=== PATIENT | male | born 1950 | race Caucasian/White ===

== ENCOUNTER → 2016-09-13 | Outpatient (CLI) | payer OTHER ==
[~2016-09-13] MED LIST: GLC/500 PO; GLUCTAB7 PO; LOVA40TA4 PO; OMEGCAP2 PO
--- NOTE | 2016-09-13 16:11 | DIAGNOSTIC IMAGING REPORT ---
[facility] CLINICAL HISTORY: Left ureteral calculus. FINDINGS: 2 AP supine abdominal radiograph are correlated with abdominal CT dated 09/12/2016. There is a nonobstructed abdominal bowel gas pattern noting moderate colonic fecal retention. There is a 7 mm left midureteral calculus which projects below the left transverse process of L3. No additional calculi are clearly identified projecting over either kidney. The bony structures appear intact. IMPRESSION: 1. There is a 7 mm mid left ureteral calculus as above. 2. No additional renal calculi are identified. 3. Moderate constipation. Electronically signed by: Maurice Miranda M.D. 09/13/2016 4:09 PM Dictated Date/Time: 09/13/2016 4:08 PM
--- NOTE | 2016-09-13 16:11 | DIAGNOSTIC IMAGING REPORT ---
CHEST 2 VIEWS ROUTINE CLINICAL HISTORY: Preoperative chest COMPARISON STUDY: No previous studies for comparison. FINDINGS: The heart is at the upper limits of normal in size. There are low lung volumes. There is no lobar consolidation. There is no failure. There are no pleural effusions.[ IMPRESSION: No active disease in the chest. Electronically signed by: Nino Padilla M.D. 09/13/2016 4:10 PM Dictated Date/Time: 09/13/2016 4:09 PM
[2016-09-13 16:44] LABS: BASO % 0.1 %; BASO ABS # 0.01 K/uL (0-0.2); COMPLETE YES; EOS % 0.1 %; IG% 0.1 %; LYMPH % 11.9 %; LYMPH ABS # 1.09 K/uL (1.2-3.4); MEAN CELL VOLUME 87.9 fL (80-100); MEAN CORPUSCULAR HEMOGLOBIN 30.3 pg (25-34); MEAN CORPUSCULAR HGB CONC 34.5 g/dl (32-36); MEAN PLATELET VOLUME 10.2 fL (7.4-10.4); MONO % 8.2 %; NEUT % 79.6 %; PLATELET COUNT 178 K/uL (130-400); RED BLOOD COUNT 4.78 M/uL (4.7-6.1); WHITE BLOOD COUNT 9.15 K/uL (4.8-10.8)
[2016-09-13 16:57] LABS: URINE APPEARANCE CLEAR (CLEAR); URINE BILIRUBIN NEG (NEG); URINE COLOR DK YELLOW; URINE NITRITE NEG (NEG); URINE SPECIFIC GRAVITY 1.037 (1.000-1.030); UROBILINOGEN NEG (NEG)
[2016-09-13 17:04] LABS: MANUAL MICROSCOPIC REQUIRED? NO; REVIEW REQ? NO
[2016-09-13 17:05] LABS: BLOOD UREA NITROGEN 20 mg/dl (7-18); BUN/CREATININE RATIO 11.9 (10-20); CARBON DIOXIDE 26 mmol/L (21-32); CHLORIDE 103 mmol/L (98-107); POTASSIUM 3.8 mmol/L (3.5-5.1); SODIUM 138 mmol/L (136-145)
== END | disposition home or self-care (01) ==
LOC: C.CPL 15:08
PROVIDERS: ATTEND Urology
DX: N20.1 Calculus of ureter (principal)

== ENCOUNTER → 2016-09-15 | Day surgery (SDC) | payer OTHER ==
[2016-09-14 13:39] VITALS: Ht 175.3 cm; Wt 81.8 kg
[~2016-09-15] VITALS: Ht 175.3 cm; Wt 81.8 kg
[~2016-09-15] MED LIST changes: +ATROPINE SULFATE 0.1 MG/ML 5ML SYR IV PRN; +CIPROFLOXACIN 400MG / D5W IV SCH; +EpHEDrine SULFATE INJ 50 MG/ML AMP IV PRN; +FENTANYL CITRATE INJ 50 MCG/1 ML 2 ML VIAL IV PRN; +FENTANYL CITRATE INJ 50 MCG/1 ML 2 ML VIAL ONE; +FLUMAZENIL 0.1 MG/1 ML 10 ML VIAL IV PRN; +HYDROmorphone INJ 2 MG/ML SYR/VIAL IV PRN; +LABETALOL HCL IV 5 MG/ML 20ML IV PRN; +LACTATED RINGER'S 1000ML 1,000 ML IV SCH; +LIDOCAINE HCL 2% 2 ML VIAL (20MG/ML) ONE; +MEPERIDINE HCL 25 MG/ML CARP IV PRN; +MIDAZOLAM HCL 1 MG/ML 2ML VIAL ONE; +NALOXONE HCL 0.4 MG/1 ML VIAL/CARP IV PRN; +ONDANSETRON INJ 2 MG/ML 2 ML VIAL IV PRN; +OXYCODONE/ACETAMINOPHEN 5-325 TAB PO PRN; +PATIENT'S ALLERGY INFO NEEDS ENTERED SCH; +PHENYLEPHRINE 100MCG/ML 5ML SYR IV PRN; +PROPOFOL IV EMULSION 10 MG/ML 20 ML VIAL IV ONE; +SCOPOLAMINE 1.5 MG TDSY TD ONE
--- NOTE | 2016-09-15 08:41 | History & Physical Bridge Note ---
H&P Re-Evaluation Bridge Note: I have examined the patient, reviewed the History & Physical and in the interval since the performance of the History & Physical I have noted the following changes of clinical significance: No changes noted
--- NOTE | 2016-09-15 10:57 | Discharge Instructions ---
Discharge Instructions Admission Reason for Admission: Stones Discharge Discharge Diagnosis / Problem: L ureteral stone s/p ESWL Discharge Goals Goal(s): Decrease discomfort, Improve disease control, Therapeutic intervention Activity Recommendations Activity Limitations: per Instructions/Follow-up section Lifting Limitations: gradually increase as tolerated Exercise/Sports Limitations: rest today May Resume Sexual Activity: when tolerated Shower/Bathe: no limitations Driving or Machine Use: resume 1 day after discharge . Instructions / Follow-Up Instructions / Follow-Up Follow-up as planned in office with [facility] prior to visit. Strain urine and bring in stone fragments to visit. Discharge Diet Recommended Diet: Regular Diet (good fluid intake) Procedures Procedures Performed: Left ureteral ESWL Pending Studies Studies pending at discharge: no Laboratory Results Hemoglobin A1c Test 07/25/16 09:21 Range/Units Estimated Average Glucose 134 mg/dl Hemoglobin A1c 6.3 H 4.5-5.6 % Lipid Panel Test 07/25/16 09:21 Range/Units Triglycerides Level 105 0-150 mg/dl Cholesterol Level 136 0-200 mg/dl HDL Cholesterol 52 mg/dl Cholesterol/HDL Ratio 2.6 LDL Cholesterol, Calculated 63 mg/dl Medical Emergencies . Who to Call and When: Medical Emergencies: If at any time you feel your situation is an emergency, please call 911 immediately. . Non-Emergent Contact Non-Emergency issues call your: Urologist Call Non-Emergent contact if: you have a fever, temperature is above 101, your pain is not controlled, your pain is worsening, your pain is unusual for you, you have any medication questions . . "Provider Documentation" section prepared by Aristides Gonzales. VTE Core Measure Inpt VTE Proph given/why not?: SCD's
--- NOTE | 2016-09-15 11:37 | OPERATIVE REPORT ---
DATE OF OPERATION: 09/15/2016 PREOPERATIVE DIAGNOSIS: Left ureteral stone. POSTOPERATIVE DIAGNOSIS: Same. PROCEDURE: Left-sided ureteral extracorporeal shockwave lithotripsy. SURGEON: Dr. Aristides Gonzales. CARBON FURNACE OPERATOR: None. ANESTHESIA: General anesthesia with laryngeal mask. COMPLICATIONS: None. FINDINGS: Good stone fragmentation on fluoroscopy. DETAILS OF PROCEDURE: The patient was brought to the litho suite. He was correctly identified and the stone was visualized on his most recent x-rays. After the correct time out was performed the patient was positioned over the therapy head. An adequate level of anesthesia was administered. The extracorporeal shockwave lithotripsy treatment was then commenced. Please see the [facility] sheet for complete treatment summary. After completion of the procedure the patient was taken to the recovery room in stable condition. I attest to the content of the Intraoperative Record and any orders documented therein. Any exceptio ns are noted below.
--- NOTE | 2016-09-15 11:51 | [facility] Post Operative Brief Note ---
Immediate Operative Summary Operative Date Sep 15, 2016. Pre-Operative Diagnosis Left Renal Calculi Post-Operative Diagnosis Same Procedure(s) Performed Left Extracorporeal Shock Wave Lithotripsy Surgeon Dr. Evans Gonzales Tucking Machine Operator Surgeon(s) None Estimated Blood Loss 0 mL Findings Good stone fragmentation on fluoro Specimens None Drains NA Anesthesia GALMA Complication(s) None Disposition Recovery Room / PACU
--- NOTE | 2016-09-15 11:58 | Anesthesia Progress Nt - [facility] ---
Anesthesia Post Op Note Date & Time Sep 15, 2016 at 11:58 Vital Signs Pain Intensity: 0 Vital Signs Past 12 Hours Date Time Temp Pulse Resp B/P Pulse Ox O2 Delivery O2 Flow Rate FiO2 09/15/16 11:35 36.8 62 12 128/75 98 Diffusion Mask 6 09/15/16 08:45 37.3 20 Notes Mental Status: alert / awake / arousable, participated in evaluation Pt Amnestic to Procedure: Yes Nausea / Vomiting: adequately controlled Pain: adequately controlled Airway Patency, RR, SpO2: stable & adequate BP & HR: stable & adequate Hydration State: stable & adequate Anesthetic Complications: no major complications apparent
[2016-09-15 12:25] VITALS: TEMP 37
[2016-09-15 12:54] VITALS: BP 129/65; PULSE 69; O2SAT 97
== END | disposition home or self-care (01) ==
LOC: X.SURG 08:26
PROVIDERS: ATTEND Urology
DX: N20.1 Calculus of ureter (principal); E11.9 Type 2 diabetes mellitus without complications; E78.00 Pure hypercholesterolemia, unspecified; Z88.0 Allergy status to penicillin; Z98.890 Other specified postprocedural states; Z82.49 Family history of ischemic heart disease and other diseases of the circulatory system

== ENCOUNTER → 2016-09-28 | Outpatient (CLI) | payer OTHER ==
[~2016-09-28] MED LIST changes: -ATROPINE SULFATE 0.1 MG/ML 5ML SYR IV PRN; -CIPROFLOXACIN 400MG / D5W IV SCH; -EpHEDrine SULFATE INJ 50 MG/ML AMP IV PRN; -FENTANYL CITRATE INJ 50 MCG/1 ML 2 ML VIAL IV PRN; -FENTANYL CITRATE INJ 50 MCG/1 ML 2 ML VIAL ONE; -FLUMAZENIL 0.1 MG/1 ML 10 ML VIAL IV PRN; -HYDROmorphone INJ 2 MG/ML SYR/VIAL IV PRN; -LABETALOL HCL IV 5 MG/ML 20ML IV PRN; -LACTATED RINGER'S 1000ML 1,000 ML IV SCH; -LIDOCAINE HCL 2% 2 ML VIAL (20MG/ML) ONE; -MEPERIDINE HCL 25 MG/ML CARP IV PRN; -MIDAZOLAM HCL 1 MG/ML 2ML VIAL ONE; -NALOXONE HCL 0.4 MG/1 ML VIAL/CARP IV PRN; -ONDANSETRON INJ 2 MG/ML 2 ML VIAL IV PRN; -OXYCODONE/ACETAMINOPHEN 5-325 TAB PO PRN; -PATIENT'S ALLERGY INFO NEEDS ENTERED SCH; -PHENYLEPHRINE 100MCG/ML 5ML SYR IV PRN; -PROPOFOL IV EMULSION 10 MG/ML 20 ML VIAL IV ONE; -SCOPOLAMINE 1.5 MG TDSY TD ONE
== END | disposition home or self-care (01) ==
LOC: C.LABSPEC 17:28
PROVIDERS: ATTEND Urology
DX: N20.0 Calculus of kidney (principal)

== ENCOUNTER → 2017-08-22 | Outpatient (CLI) | payer OTHER ==
[2017-08-22 13:11] LABS: HEMOGLOBIN A1C 6.5 % (4.5-5.6)
== END | disposition home or self-care (01) ==
LOC: C.LABMFLN 10:24
PROVIDERS: ATTEND Family Medicine
DX: E78.00 Pure hypercholesterolemia, unspecified (principal); E11.9 Type 2 diabetes mellitus without complications; Z12.5 Encounter for screening for malignant neoplasm of prostate

== ENCOUNTER → 2017-08-29 | Outpatient (CLI) | payer OTHER | END | disposition home or self-care (01) | LOC: C.LABMFLN 10:29 | PROVIDERS: ATTEND Family Medicine | DX: E78.00 Pure hypercholesterolemia, unspecified (principal); E11.9 Type 2 diabetes mellitus without complications ==

== ENCOUNTER 2018-09-07 17:37 | Inpatient (IN) ==
[2018-09-07] MEDS ORDERED: FAMOTIDINE 20MG/5ML IV PUSH IV STA (17:49)
[2018-09-07] MEDS ORDERED: ONDANSETRON INJ 2 MG/ML 2 ML VIAL IV STA (17:49)
[2018-09-07] MEDS ORDERED: PANTOprazole 80 MG in DEXTROSE 5% 100 ML IV ONE (17:49)
[2018-09-07] MEDS ORDERED: SODIUM CHLORIDE 0.9% 1000ML 1,000 ML IV SCH ×2 (18:00)
[2018-09-07] MEDS ORDERED: PANTOprazole 40 MG in DEXTROSE 5% 100 ML IV SCH ×2 (18:00→20:49)
[2018-09-07 18:08] LABS: Basophils # (auto) 0.01 K/uL (0-0.2); Basophils % (auto) 0.1 %; Eosinophils # (auto) 0.03 K/uL (0-0.5); Eosinophils % (auto) 0.2 %; Hematocrit (blood only) 29.1 % (42-52); Hemoglobin 9.7 g/dL (14.0-18.0); Immature Granulocytes # (auto) 0.03 K/uL (0.00-0.02); Immature Granulocytes % (auto) 0.2 %; Lymphocytes % (auto) 17.6 %; Mean Corpuscular Hgb Conc 33.3 g/dL (32-36); Mean Corpuscular Volume 90.1 fL (80-100); Mean Platelet Volume 9.4 fL (7.4-10.4); Monocytes % (auto) 9.2 %; Neutrophils # (auto) 9.53 K/uL (1.4-6.5); Neutrophils % (auto) 72.7 %; Platelet Count 296 K/uL (130-400); RDW Coefficient of Variation 13.3 % (11.5-14.5); RDW Standard Deviation 43.9 fL (36.4-46.3); Red Blood Count 3.23 M/uL (4.7-6.1)
[2018-09-07 18:22] LABS: iSTAT Hemoglobin 9.5 g/dl (14.0-18.0); iSTAT Ionized Calcium 1.11 mmol/l (1.12-1.32)
[2018-09-07 18:27] LABS: INR 1.1 (0.9-1.1); Partial Thromboplastin Ratio 1.2; Partial Thromboplastin Time 30.3 Seconds (21.0-31.0)
[2018-09-07 18:29] LABS: Alanine Aminotransferase 17 U/L (12-78); Albumin Level 2.6 gm/dl (3.4-5.0); Aspartate Aminotransferase 14 U/L (15-37); Blood Urea Nitrogen 32 mg/dl (7-18); Calcium 8.4 mg/dl (8.5-10.1); Carbon Dioxide 23 mmol/L (21-32); Chloride 101 mmol/L (98-107); Est GFR (African American) 63.1; Est GFR (Non-African American) 54.4; Glucose 219 mg/dl (70-99); Potassium 3.5 mmol/L (3.5-5.1); Sodium 138 mmol/L (136-145)
[2018-09-07 18:34] LABS: Albumin Globulin Ratio 0.7 (0.9-2); Alkaline Phosphatase 57 U/L (45-117); Bilirubin,Total 1.3 mg/dl (0.2-1); Globulin 3.5 gm/dl (2.5-4.0); Total Protein 6.1 gm/dl (6.4-8.2); Troponin I < 0.015 ng/ml (0-0.045)
--- NOTE | 2018-09-07 18:59 | CT Scan Report ---
ABDOMEN AND PELVIS CT WITHOUT CONTRAST CT DOSE: 477.40 mGy.cm HISTORY: Acute GI bleed with generalized abdominal pain and vomiting. GI bleed, vomiting, tender umb ilical hernia TECHNIQUE: Multiaxial CT images of the abdomen and pelvis were performed without contrast. A dose lo wering technique was utilized adhering to the principles of ALARA. COMPARISON STUDY: CT abdomen pelvis 09/12/2016 images only from outside hospital. FINDINGS: Mild subsegmental bibasilar atelectasis with right hemidiaphragmatic elevation. No pneumatosis or pn eumoperitoneum identified. Imaged inferior cardiac chambers appear unremarkable. Coronary arterial ca lcifications are noted. Mild fusiform dilation of the ascending thoracic aorta, 4.0 x 4.0 cm, unchang ed. Study is limited without the use of contrast. There are a few subcentimeter hypodense lesions noted a bout the left hepatic lobe measuring up to 6 mm, indeterminate unchanged statistically favor benign e tiology. Liver is otherwise unremarkable. There are a few coarse calcifications noted about the pancr eatic tail and pancreatic body. Mild generalized pancreatic atrophy. Adrenal glands and gallbladder a ppear unremarkable. Mild nonspecific perinephric stranding, right greater than left. No renal calculi, ureteral calculi o r obstructive uropathy. Suggested renal sinus cysts on the right. Mild prostamegaly. Urinary bladder is within normal limits. Small fat filled bilateral inguinal hernias. Aorta and IVC are unremarkable. No adenopathy. There is moderate circumferential wall thickening about the pylorus, first and second portions of the duodenum with mild irregularity of the mucosa within this distribution, image 161 series 3. Addition ally, there is hyperattenuating material within the duodenal lumen. Moderate surrounding inflammatory stranding. No small bowel obstruction. The remainder of the small and large bowel demonstrates no in flammatory changes or additional wall thickening. Extensive colonic diverticulosis without acute dive rticulitis. Terminal ileum and appendix appear unremarkable. Trace fluid tracks along the right peric olic gutter. Ill-defined hypodensity about the right iliacus suggests iliopsoas bursitis. Multilevel facet arthros is with spondylitic spurring. Remote bilateral L4 pars defects with 10 mm anterolisthesis L4 on L5. C hondrocalcinosis severe intervertebral disc space narrowing of the disc space. Chondrocalcinosis of t he facets at this interspace are also present. Chondrocalcinosis of the femoral acetabular joints and pubic symphysis. Small fat filled periumbilical hernia, diastases 1.9 cm. IMPRESSION: 1. Limited study without the use of contrast. 2. Moderate circumferential wall thickening about the pylorus, first and second portions of the duode num with mild irregularity of the duodenal mucosa is suggestive of underlying peptic ulcer disease or ulcerative mucosal lesion. Hyperattenuating material within the duodenal lumen suggests intraluminal hemorrhage. These findings could be correlated with endoscopy. 3. Moderate likely reactive paraduodenal inflammation. 4. No pneumatosis or pneumoperitoneum. 5. Colonic diverticulosis without acute diverticulitis. 6. Fusiform aneurysmal dilation of the ascending thoracic aorta, 4.0 x 4.0 cm. 7. Additional findings as above. Electronically signed by: Phillip Malik M.D. 09/07/2018 6:57 PM
--- NOTE | 2018-09-07 19:03 | XRay Report ---
XR chest 1V portable HISTORY: 68 years-old Male gi bleed acute GI bleed COMPARISON: CT abdomen and pelvis of same day, chest radiograph 07/15/2018 TECHNIQUE: Portable AP view the chest FINDINGS: Mild right hemidiaphragm elevation. Lungs are hypoinflated. Subsegmental bibasilar opacities. Heart i s upper limits of normal in size. No pneumothorax or overt pulmonary edema. Degenerative changes of t he shoulders and spine. IMPRESSION: Mild right hemidiaphragm elevation with subsegmental bibasilar opacities suggestive of atelectasis. The above report was generated using voice recognition software. It may contain grammatical, syntax o r spelling errors. Electronically signed by: Phillip Malik M.D. 09/07/2018 7:02 PM
[2018-09-07 19:38] LABS: Hematocrit (blood only) 25.2 % (42-52); Hemoglobin 8.4 g/dL (14.0-18.0)
--- NOTE | 2018-09-07 20:42 | Emergency Department Note ---
Entered by Megan Howard acting as a scribe for ED Provider Note CHIEF COMPLAINT: GI bleed HISTORY OF PRESENT ILLNESS: The patient is a 68 year old male who presents to the Emergency Room with complaints of sudden GI bleed that started yesterday . The patients reports the patient had knee replacement recently. She states the patient started having nausea and rectal bleeding after the surgery. The patient reports his stool is bloody and dark. He reports he has no history of rectal bleeding, ulcers, anemia, or blood transfusion. The patient notes he had multiple episodes of heave vomiting yesterday and on the last episode he vomited small amount of blood. The patient reports he had 10mg of xarelto at 7am today. Pt denies LOC, headache, fevers, chills, diaphoresis, visual changes, neck pain , chest pain, breathing difficulties, abdominal pain, back pain, hematochezia, urinary symptoms, numbness, weakness, lymphadenopathy, rash, or other complaints. REVIEW OF SYSTEMS: See HPI for pertinent positives and negatives. A total of ten systems were reviewed and were otherwise negative. PMHx/PSHx: Hyperlipidemia Diabetes Osteoarthritis Umbilical hernia Lithotripsy SOCIAL HISTORY: Patient lives at home. PHYSICAL EXAM: GENERAL: Awake, alert, uncomfortable-appearing, in moderate distress HENT: Normocephalic, atraumatic. Oropharynx unremarkable. EYES: Normal conjunctiva. Sclera non-icteric. NECK: Inspection normal. Non-tender. Supple. No nuchal rigidity. FROM. No masses. RESPIRATORY: Clear to auscultation. No wheezes. No rales. Normal respiratory effort. CARDIAC: Tachycardic rate. Normal rhythm. No murmurs. No rubs. Extremities warm and well perfused. Pulses equal. No JVD. GI: Soft, non-distended. No tenderness to palpation. No rebound or guarding. No masses. Umbilical hernia present and tender. RECTAL: Grossly bloody stool. Hemoccult positive MUSCULOSKELETAL: Atraumatic. Chest examination reveals no tenderness. The back is symmetrical on inspection without obvious abnormality. There is no CVA tenderness to palpation. No joint edema. LOWER EXTREMITIES: Calves are equal size bilaterally and non-tender. No edema. No discoloration. Surgical right knee incision is clean, dry, and intact. Scattered bruising and mild swelling in the right lower leg. NEURO: Normal sensorium. No sensory or motor deficits noted. SKIN: No rash or jaundice noted. EMERGENCY DEPARTMENT COURSE: 1745: Past medical records reviewed. The patient was evaluated in room B12B, and a complete history and physical examination were performed. 1843: I checked on the patient. The patient is feeling better, nausea is better , blood pressure has improved, and heart rate went down. I updated him on results so far. 1909: I reviewed the patient's case with Dr. Collins, [facility] Hospitalist. He will evaluate the patient for further management. 1916: I reviewed the patient's case with Dr. Mederos, Gastoenterologis. 1934: I reviewed the patient's case with Dr. Ribeiro, Gastroenterology. He agreed with the treatment so far. He said if the patient decompensates to call him and he will come in emergently. He plans to reevaluate him in the morning for management. 1954: Repeat hemoglobin. It is down to 8.4. I discussed transfusion with the patient and he is in agreement and Dr. Collins is as well. MEDICAL DECISION MAKING: Prior records/ancillary studies reviewed. Patient was discharged with a hemoglobin of 12.73 days ago. Triage Nursing notes reviewed and agree them. Additional history obtained from the the patient's . The patient's history was concerning for possible gastrointestinal bleeding. Differential diagnosis: Etiologies such as diverticulosis, AVM, coagulopathy, colitis, inflammatory bowel disease, malignancy,Jayashree-Cagle tear, esophagitis, peptic ulcer disease , variceal bleed, gastritis, epistaxis, fissure, hemorrhoids, as well as others were entertained. Physical exam: As above. The patient was tachycardic and hypotensive. ER treatment provided: 2 IVs placed Normal saline hydration as well as 1 L normal saline bolus IV Zofran IV Protonix bolus and drip IV Pepcid On reassessment the patient felt better. Type and cross with consent for blood transfusion. Ordered 1 unit packed red blood cells after consultation with internal medicine and gastroenterology Diagnostics interpreted by me: ECG: No acute ischemia The labs revealed a moderate anemia on CBC. Hemoglobin was down approximately 3 units to 9.7. Repeat hemoglobin after saline resuscitation was down further at 8.4. Imaging studies: CT scan was concerning for possible peptic ulcer disease with intraluminal hemorrhage. No perforations noted per radiology. Other chronic findings noted. Consultation: A consultation was placed with the aircraft instrument mechanic on-call, Dr. Talha Ribeiro. He agreed with the above treatment and plans on evaluating the patient in the morning if he remains hemodynamically stable after resuscitation. If the patient becomes unstable he will plan on emergent endoscopy. Consultation was placed with the [facility] hospitalist. The case was discussed and diagnostics were reviewed. The patient was evaluated in the ER for further treatment. The patient will be admitted to the intensive care unit. Critical care was consulted by internal medicine. IMPRESSION: Acute GI bleed Hypotension Anemia PLAN: Admit I have personally spent greater than 35 minutes of critical care time in the direct management of this patient. This includes bedside care, interpretation of diagnostic studies, and testing, discussion with consultants, patient, and family members, and other required patient management activities. This 35 minutes is in excess of all separately billable procedures. The scribe's documentation has been prepared under my direction and personally reviewed by me in its entirety. I confirm that the note above accurately reflects all work, treatment, procedures, and medical decision making performed by me. Impression & Plan Acute GI bleeding, Hypotension, Anemia Past Med/Surg History Medical History Diabetes mellitus, type 2 NIDDM Hyperlipidemia Osteoarthritis Umbilical hernia Surgical History History of colonoscopy History of lithotripsy LEFT ESWL= 09/15/16= "LMA#5 WITH 40CC AIR IN CUFF, EASY, ATRAUMATIC" AT [facility] History of repair of rotator cuff RIGHT Family History Mother Family history of diabetes mellitus Social History marital status: Current Living Situation: Spouse Feels Safe at Home: Yes Smoking Status: Never smoker Second Hand Exposure: No Hx Alcohol Use: No Hx Substance Use: No Beliefs That Will Affect Care: None Preferred Language: Swazi Results & Data Vital Signs Vital Signs - 24 hr 09/07/18 17:40 09/07/18 18:00 09/07/18 18:10 Temperature 37.1 C Temperature Source Oral Sepsis Recent Fever Within 48 Hours No Sepsis New/Unexplained Change in Mental Status No Sepsis Action Taken by Nursing No Action Required Pulse Rate 80 89 88 Pulse Rate [Apical] Respiratory Rate 20 24 25 H Blood Pressure 79/45 L 122/69 Blood Pressure [Right Arm] Blood Pressure Mean 56 86 Blood Pressure Mean [Right Arm] Blood Pressure Position Sitting Pulse Oximetry 99 98 97 Oxygen Delivery Method Room Air 09/07/18 18:15 09/07/18 18:16 09/07/18 18:33 Temperature Temperature Source Sepsis Recent Fever Within 48 Hours Sepsis New/Unexplained Change in Mental Status Sepsis Action Taken by Nursing Pulse Rate 87 85 Pulse Rate [Apical] Respiratory Rate 23 22 24 Blood Pressure 117/66 114/69 Blood Pressure [Right Arm] Blood Pressure Mean 83 84 Blood Pressure Mean [Right Arm] Blood Pressure Position Pulse Oximetry 96 96 96 Oxygen Delivery Method 09/07/18 18:34 09/07/18 18:39 09/07/18 18:45 Temperature Temperature Source Sepsis Recent Fever Within 48 Hours Sepsis New/Unexplained Change in Mental Status Sepsis Action Taken by Nursing Pulse Rate 97 H 95 H Pulse Rate [Apical] 95 H Respiratory Rate 23 20 23 Blood Pressure 96/62 L Blood Pressure [Right Arm] 114/69 Blood Pressure Mean 73 Blood Pressure Mean [Right Arm] 84 Blood Pressure Position Pulse Oximetry 95 97 94 Oxygen Delivery Method Room Air 09/07/18 18:46 09/07/18 19:00 09/07/18 19:01 Temperature Temperature Source Sepsis Recent Fever Within 48 Hours Sepsis New/Unexplained Change in Mental Status Sepsis Action Taken by Nursing Pulse Rate 98 H 95 H 97 H Pulse Rate [Apical] Respiratory Rate 25 H 20 22 Blood Pressure 116/62 Blood Pressure [Right Arm] Blood Pressure Mean 80 Blood Pressure Mean [Right Arm] Blood Pressure Position Pulse Oximetry 94 94 91 Oxygen Delivery Method 09/07/18 19:15 09/07/18 19:16 09/07/18 19:25 Temperature Temperature Source Sepsis Recent Fever Within 48 Hours Sepsis New/Unexplained Change in Mental Status Sepsis Action Taken by Nursing Pulse Rate 99 H 97 H 128 H Pulse Rate [Apical] Respiratory Rate 24 24 22 Blood Pressure 121/72 121/69 Blood Pressure [Right Arm] Blood Pressure Mean 88 86 Blood Pressure Mean [Right Arm] Blood Pressure Position Pulse Oximetry 93 95 94 Oxygen Delivery Method 09/07/18 19:30 09/07/18 19:31 09/07/18 19:43 Temperature Temperature Source Sepsis Recent Fever Within 48 Hours Sepsis New/Unexplained Change in Mental Status Sepsis Action Taken by Nursing Pulse Rate 95 H 96 H 95 H Pulse Rate [Apical] Respiratory Rate 27 H 23 22 Blood Pressure 120/68 115/72 Blood Pressure [Right Arm] Blood Pressure Mean 85 86 Blood Pressure Mean [Right Arm] Blood Pressure Position Pulse Oximetry 89 L 94 93 Oxygen Delivery Method Home Medications Current Medication List: was personally reviewed by me Laboratory Data Attestation: I reviewed the patient's lab results. Result diagrams: 09/07/18 19:29 09/07/18 17:50 Lab Results 09/07/18 09/07/18 09/07/18 Range/Units 17:50 17:50 17:50 WBC 13.10 H (4.8-10.8) K/uL RBC 3.23 L (4.7-6.1) M/uL Hgb 9.7 L (14.0-18.0) g/dL POC Hgb (14.0-18.0) g/dl Hct 29.1 L (42-52) % POC Hct (42-52) % MCV 90.1 (80-100) fL MCH 30.0 (25-34) pg MCHC 33.3 (32-36) g/dL RDW Std Deviation 43.9 (36.4-46.3) fL RDW Coeff of Fred 13.3 (11.5-14.5) % Plt Count 296 (130-400) K/uL MPV 9.4 (7.4-10.4) fL Immature Gran % (Auto) 0.2 % Neut % (Auto) 72.7 % Lymph % (Auto) 17.6 % [place] % (Auto) 9.2 % Eos % (Auto) 0.2 % Baso % (Auto) 0.1 % Immature Gran # (Auto) 0.03 H (0.00-0.02) K/uL Neut # (Auto) 9.53 H (1.4-6.5) K/uL Lymph # (Auto) 2.30 (1.2-3.4) K/uL [place] # (Auto) 1.20 H (0.11-0.59) K/uL Eos # (Auto) 0.03 (0-0.5) K/uL Baso # (Auto) 0.01 (0-0.2) K/uL PT 11.0 (9.0-12.0) Seconds INR 1.1 (0.9-1.1) APTT 30.3 (21.0-31.0) Seconds PTT Ratio 1.2 POC Sodium (135-144) mEq/L Sodium 138 (136-145) mmol/L POC Potassium (3.3-5.0) mEq/L Potassium 3.5 (3.5-5.1) mmol/L POC Chloride (101-112) mEq/L Chloride 101 (98-107) mmol/L Carbon Dioxide 23 (21-32) mmol/L POC Total CO2 (24-31) mEq/l Anion Gap 13.0 H (3-11) POC Anion Gap (16-25) mmol/L POC BUN (7-18) mg/dl BUN 32 H (7-18) mg/dl Creatinine 1.34 (0.6-1.4) mg/dl POC Creatinine (0.6-1.3) mg/dl Est Cr Clr Drug Dosing Not Reportable Est GFR ( Amer) 63.1 Est GFR (Non-Af Amer) 54.4 BUN/Creatinine Ratio 24.0 H (10-20) Glucose 219 H (70-99) mg/dl POC Glucose (other) (70-99) mg/dl Calcium 8.4 L (8.5-10.1) mg/dl POC Ioniz Calcium Roosevelt (1.12-1.32) mmol/l Total Bilirubin 1.3 H (0.2-1) mg/dl AST 14 L (15-37) U/L ALT 17 (12-78) U/L Alkaline Phosphatase 57 (45-117) U/L Troponin I < 0.015 (0-0.045) ng/ml Total Protein 6.1 L (6.4-8.2) gm/dl Albumin 2.6 L (3.4-5.0) gm/dl Globulin 3.5 (2.5-4.0) gm/dl Albumin/Globulin Ratio 0.7 L (0.9-2) Lipase 92 (73-393) U/L POC Stool Occult Blood (Negative) Blood Type Antibody Screen Crossmatch 09/07/18 09/07/18 09/07/18 Range/Units 17:50 18:05 18:08 WBC (4.8-10.8) K/uL RBC (4.7-6.1) M/uL Hgb (14.0-18.0) g/dL POC Hgb 9.5 L (14.0-18.0) g/dl Hct (42-52) % POC Hct 28 L (42-52) % MCV (80-100) fL MCH (25-34) pg MCHC (32-36) g/dL RDW Std Deviation (36.4-46.3) fL RDW Coeff of Fred (11.5-14.5) % Plt Count (130-400) K/uL MPV (7.4-10.4) fL Immature Gran % (Auto) % Neut % (Auto) % Lymph % (Auto) % [place] % (Auto) % Eos % (Auto) % Baso % (Auto) % Immature Gran # (Auto) (0.00-0.02) K/uL Neut # (Auto) (1.4-6.5) K/uL Lymph # (Auto) (1.2-3.4) K/uL [place] # (Auto) (0.11-0.59) K/uL Eos # (Auto) (0-0.5) K/uL Baso # (Auto) (0-0.2) K/uL PT (9.0-12.0) Seconds INR (0.9-1.1) APTT (21.0-31.0) Seconds PTT Ratio POC Sodium 138 (135-144) mEq/L Sodium (136-145) mmol/L POC Potassium 3.5 (3.3-5.0) mEq/L Potassium (3.5-5.1) mmol/L POC Chloride 100 L (101-112) mEq/L Chloride (98-107) mmol/L Carbon Dioxide (21-32) mmol/L POC Total CO2 23 L (24-31) mEq/l Anion Gap (3-11) POC Anion Gap 19.0 (16-25) mmol/L POC BUN 29 H (7-18) mg/dl BUN (7-18) mg/dl Creatinine (0.6-1.4) mg/dl POC Creatinine 1.1 (0.6-1.3) mg/dl Est Cr Clr Drug Dosing Est GFR ( Amer) Est GFR (Non-Af Amer) BUN/Creatinine Ratio (10-20) Glucose (70-99) mg/dl POC Glucose (other) 216 H (70-99) mg/dl Calcium (8.5-10.1) mg/dl POC Ioniz Calcium [place] 1.11 L (1.12-1.32) mmol/l Total Bilirubin (0.2-1) mg/dl AST (15-37) U/L ALT (12-78) U/L Alkaline Phosphatase (45-117) U/L Troponin I (0-0.045) ng/ml Total Protein (6.4-8.2) gm/dl Albumin (3.4-5.0) gm/dl Globulin (2.5-4.0) gm/dl Albumin/Globulin Ratio (0.9-2) Lipase (73-393) U/L POC Stool Occult Blood Positive H (Negative) Blood Type A Positive Antibody Screen NEGATIVE Crossmatch See Detail 09/07/18 Range/Units 19:29 WBC (4.8-10.8) K/uL RBC (4.7-6.1) M/uL Hgb 8.4 L (14.0-18.0) g/dL POC Hgb (14.0-18.0) g/dl Hct 25.2 L (42-52) % POC Hct (42-52) % MCV (80-100) fL MCH (25-34) pg MCHC (32-36) g/dL RDW Std Deviation (36.4-46.3) fL RDW Coeff of Fred (11.5-14.5) % Plt Count (130-400) K/uL MPV (7.4-10.4) fL Immature Gran % (Auto) % Neut % (Auto) % Lymph % (Auto) % [place] % (Auto) % Eos % (Auto) % Baso % (Auto) % Immature Gran # (Auto) (0.00-0.02) K/uL Neut # (Auto) (1.4-6.5) K/uL Lymph # (Auto) (1.2-3.4) K/uL [place] # (Auto) (0.11-0.59) K/uL Eos # (Auto) (0-0.5) K/uL Baso # (Auto) (0-0.2) K/uL PT (9.0-12.0) Seconds INR (0.9-1.1) APTT (21.0-31.0) Seconds PTT Ratio POC Sodium (135-144) mEq/L Sodium (136-145) mmol/L POC Potassium (3.3-5.0) mEq/L Potassium (3.5-5.1) mmol/L POC Chloride (101-112) mEq/L Chloride (98-107) mmol/L Carbon Dioxide (21-32) mmol/L POC Total CO2 (24-31) mEq/l Anion Gap (3-11) POC Anion Gap (16-25) mmol/L POC BUN (7-18) mg/dl BUN (7-18) mg/dl Creatinine (0.6-1.4) mg/dl POC Creatinine (0.6-1.3) mg/dl Est Cr Clr Drug Dosing Est GFR ( Amer) Est GFR (Non-Af Amer) BUN/Creatinine Ratio (10-20) Glucose (70-99) mg/dl POC Glucose (other) (70-99) mg/dl Calcium (8.5-10.1) mg/dl POC Ioniz Calcium [place] (1.12-1.32) mmol/l Total Bilirubin (0.2-1) mg/dl AST (15-37) U/L ALT (12-78) U/L Alkaline Phosphatase (45-117) U/L Troponin I (0-0.045) ng/ml Total Protein (6.4-8.2) gm/dl Albumin (3.4-5.0) gm/dl Globulin (2.5-4.0) gm/dl Albumin/Globulin Ratio (0.9-2) Lipase (73-393) U/L POC Stool Occult Blood (Negative) Blood Type Antibody Screen Crossmatch Administered Medications Pantoprazole Sodium 40 mg/ (Dextrose) 100 mls @ 20 mls/hr IV Q5H KIMBERLY Stop: 09/07/18 22:59 Last Admin: 09/07/18 18:34 Dose: 20 mls/hr Sodium Chloride (Nss 1000ml) 1,000 mls @ 100 mls/hr IV .Q10H KIMBERLY Stop: 09/08/18 03:59 Last Admin: 09/07/18 18:11 Dose: 100 mls/hr Discontinued Medications Famotidine (Pepcid 20mg Iv Push) 20 mg IV ONE STA Stop: 09/07/18 17:50 Last Admin: 09/07/18 18:39 Dose: 20 mg Pantoprazole Sodium 80 mg/ (Dextrose) 120 mls @ 400 mls/hr IV NOW ONE Stop: 09/07/18 18:06 Last Infusion: 09/07/18 18:52 Dose: 0 mls/hr Admin: 09/07/18 18:11 Dose: 400 mls/hr Sodium Chloride (Nss 1000ml) 1,000 mls @ 999 mls/hr IV .Q1H1M KIMBERLY Stop: 09/07/18 19:00 Last Infusion: 09/07/18 19:43 Dose: 0 mls/hr Admin: 09/07/18 18:38 Dose: 999 mls/hr Ondansetron HCl (Zofran) 4 mg IV ONE STA Stop: 09/07/18 17:50 Last Admin: 09/07/18 18:39 Dose: 4 mg Imaging Data Radiologist's Impression: Radiology results as stated below per my review and the radiologist's interpretation: XR chest 1V portable HISTORY: 68 years-old Male gi bleed acute GI bleed COMPARISON: CT abdomen and pelvis of same day, chest radiograph 07/15/2018 TECHNIQUE: Portable AP view the chest FINDINGS: Mild right hemidiaphragm elevation. Lungs are hypoinflated. Subsegmental bibasilar opacities. Heart is upper limits of normal in size. No pneumothorax or overt pulmonary edema. Degenerative changes of the shoulders and spine. IMPRESSION: Mild right hemidiaphragm elevation with subsegmental bibasilar opacities suggestive of atelectasis. The above report was generated using voice recognition software. It may contain grammatical, syntax or spelling errors. Electronically signed by: Phillip Malik M.D. 09/07/2018 7:02 PM ABDOMEN AND PELVIS CT WITHOUT CONTRAST CT DOSE: 477.40 mGy.cm HISTORY: Acute GI bleed with generalized abdominal pain and vomiting. GI bleed , vomiting, tender umbilical hernia TECHNIQUE: Multiaxial CT images of the abdomen and pelvis were performed without contrast. A dose lowering technique was utilized adhering to the principles of ALARA. COMPARISON STUDY: CT abdomen pelvis 09/12/2016 images only from outside hospital. FINDINGS: Mild subsegmental bibasilar atelectasis with right hemidiaphragmatic elevation. No pneumatosis or pneumoperitoneum identified. Imaged inferior cardiac chambers appear unremarkable. Coronary arterial calcifications are noted. Mild fusiform dilation of the ascending thoracic aorta, 4.0 x 4.0 cm, unchanged. Study is limited without the use of contrast. There are a few subcentimeter hypodense lesions noted about the left hepatic lobe measuring up to 6 mm, indeterminate unchanged statistically favor benign etiology. Liver is otherwise unremarkable. There are a few coarse calcifications noted about the pancreatic tail and pancreatic body. Mild generalized pancreatic atrophy. Adrenal glands and gallbladder appear unremarkable. Mild nonspecific perinephric stranding, right greater than left. No renal calculi, ureteral calculi or obstructive uropathy. Suggested renal sinus cysts on the right. Mild prostamegaly. Urinary bladder is within normal limits. Small fat filled bilateral inguinal hernias. Aorta and IVC are unremarkable. No adenopathy. There is moderate circumferential wall thickening about the pylorus, first and second portions of the duodenum with mild irregularity of the mucosa within this distribution, image 161 series 3. Additionally, there is hyperattenuating material within the duodenal lumen. Moderate surrounding inflammatory stranding. No small bowel obstruction. The remainder of the small and large bowel demonstrates no inflammatory changes or additional wall thickening. Extensive colonic diverticulosis without acute diverticulitis. Terminal ileum and appendix appear unremarkable. Trace fluid tracks along the right pericolic gutter. Ill-defined hypodensity about the right iliacus suggests iliopsoas bursitis. Multilevel facet arthrosis with spondylitic spurring. Remote bilateral L4 pars defects with 10 mm anterolisthesis L4 on L5. Chondrocalcinosis severe intervertebral disc space narrowing of the disc space. Chondrocalcinosis of the facets at this interspace are also present. Chondrocalcinosis of the femoral acetabular joints and pubic symphysis. Small fat filled periumbilical hernia, diastases 1.9 cm. IMPRESSION: 1. Limited study without the use of contrast. 2. Moderate circumferential wall thickening about the pylorus, first and second portions of the duodenum with mild irregularity of the duodenal mucosa is suggestive of underlying peptic ulcer disease or ulcerative mucosal lesion. Hyperattenuating material within the duodenal lumen suggests intraluminal hemorrhage. These findings could be correlated with endoscopy. 3. Moderate likely reactive paraduodenal inflammation. 4. No pneumatosis or pneumoperitoneum. 5. Colonic diverticulosis without acute diverticulitis. 6. Fusiform aneurysmal dilation of the ascending thoracic aorta, 4.0 x 4.0 cm. 7. Additional findings as above. Electronically signed by: Phillip Malik M.D. 09/07/2018 6:57 PM ECG Data Attestation: I personally reviewed and interpreted this ECG as follows: Indication: other (GI bleed) Rate (beats per minute): 89 Rhythm: normal sinus Findings: + nonspecific-ST abn; no PAC and no PVC Blood Pressure Blood Pressure Findings: Normal blood pressure Blood Pressure Disposition: did not require urgent referral Discharge Plan Visit Data Chief Complaint: GI Bleed Stated Complaint: BLOOD IN STOOL ED Provider: Adeel Sultana Discharge Problem: Acute GI bleeding, Hypotension, Anemia Forms Stand Alone Forms: My [facility] Prescriptions Prescriptions: No Action metformin 500 mg Tablet 500 mg PO BID RF: 0 lovastatin 40 mg Tablet 40 mg PO PM RF: 0 [id number] [krill oil] 927-16-84-50 mg Capsule 1 cap PO QAM RF: 0 [id number] borate [[facility]] 750 mg-100 mg- 1.65 mg -108 mg Tablet 1 tab PO QAM RF: 0 rivaroxaban [Xarelto] 10 mg Tablet 10 mg PO DAILY 28 Days Qty: 28 RF: 0 acetaminophen [Pain Reliever] 500 mg Tablet 1,000 mg PO Q8 30 Days Qty: 180 RF: 0 oxycodone 5 mg Tablet 5 - 10 mg PO Q6H PRN (Reason: pain) 15 Days Qty: 40 RF: 0 Referrals Referrals: Maurice Wang MD [Primary Care Provider] - The scribe's documentation has been prepared under my direction and personally reviewed by me in its entirety. I confirm that the note above accurately reflects all work, treatment, procedures, and medical decision making performed by me.
[2018-09-07] MEDS ORDERED: ICU PROTOCOL FOR HYPERGLYCEMIA PRN (20:49)
[2018-09-07] MEDS ORDERED: ONDANSETRON INJ 2 MG/ML 2 ML VIAL IV PRN (20:49)
[2018-09-07] MEDS ORDERED: SODIUM CHLORIDE 0.9% 250 ML IV PRN (20:56)
--- NOTE | 2018-09-07 21:00 | Critical Care Consultation ---
Date of Consultation September 07, 2018 Assessment & Plan (1) Admitted to intensive care unit: Reason Critically Ill: 68-year-old male with acute GI bleed from presumed duodenal ulcer currently anticoagulated on Xarelto requiring close hemodynamic monitoring with need for aggressive transfusions. NEURO - * CAM ICU: NEGATIVE * PAIN (post-operative): * Previously using OxyIR. * Will change to Morphine IV PRN in the setting of NPO status. CARDIAC/VASCULAR - * Hypotension/Tachycardia/Orthostasis: * 2/2 acute GI hemorrhage w/ symptomatic anemia. * Plan to transfuse to help maintain hemodynamics. * EKG: NSR@89bpm w/o acute significan ST/T-wave changes. QTc 428ms * Monitor on telemetry. * Of note, patient was found to have Ascending Thoracic Aortic Aneurysmal changes on CT. Should be discussed w/ PCP for continued followup. RESPIRATORY - * No h/o Pulmonary disease. * Will monitor pulseoximetry closely while receiving blood products for s/s of TACO/TRALI. * Supplemental O2 PRN GI/NUTRITION - * Acute Bleeding Duodenal Ulcer on Xarelto: * Agree with continuing Protonix gtt. * No utility in Sandostatin at this point. * NPO for GI to see in AM. * Support w/ blood products (See Heme). * Agree with SBP coverage currently. RENAL/LYTES - * No acute electrolyte derangements. * Will monitor lytes closely (especially K+) in the setting of transfusion and risk for cell lysis --> hyperkalemia. * IVF: NSS@100mL/hr - * No concerns at this time. ENDO - * DMII on Metformin: * Hold metformin. * ISS for coverage. * BSGs per unit protocol. ISS --> gtt per unit policy. HEME - * Acute Blood Loss Anemia 2/2 UGIB on Xarelto: * Type and Crossed for 1U PRBCS in the ED. * Will transfuse an additional unit for a total of 2 initially. Given the precipitous drop in ~1.5 hours, have to presume persistent bleeding and that we are already behind on transfusion. * Will titrate transfusion as patient tolerates. * Spoke with Dr. Sahu. No role for K-Centra in this patient. Will continue to transfuse PRBCs/FFP at a 2:1 ratio as discussed. * Hold on anticoagulation at this point. * Serial H&Hs. * Transfuse aggressively as needed. ID - * Duodenal Ulcer w/ Acute GIB: * Agree w/ SBP coverage in the interim. * No need for cultures. * Will monitor fever curve. LINES/IV ACCESS - * PIVs x2 * Spoke with Patient and at great length. Agreeable to CVL if needed in the setting of decompensating patient. DVT PROPHYLAXIS - * Hold on chemoprophylaxis 2/2 UGIB. * SCDs after B/L LE US to r/o DVT. I have personally spent 45 minutes of critical care time in the direct management of this patient. This is a life/limb threatening event. This includes time spent evaluating patient, direct bedside care, chart review, placing orders, interpretation of diagnostic studies, discussion with consultants, patient, and family members, as well as other required patient management activities. This time is exclusive of all separately billable procedures, and teaching time and separate from and in addition to any other critical care service time. Thank you for allowing us to participate in the care of this patient. Please refer to my attending physician's documentation for any further recommendations. The patient was discussed with my colleague over the phone, agree with assessment and plan, please see my other note. CCM time provided by critical care team was 45 minutes. (2) Duodenal ulcer with hemorrhage: (3) Hypotension: (4) Symptomatic anemia: (5) Acute blood loss anemia: (6) Diabetes mellitus: (7) Acute GI bleeding: (8) Thoracic ascending aortic aneurysm: History of Present Illness Attending Physician: Joce Collins MD Patient is a 68-year-old male with a significant past medical history of diabetes who recently underwent RIGHT total knee arthroplasty on 09/03. The patient was discharged on 09/05 after he placed on Xarelto 10 mg daily for postoperative DVT prophylaxis in a patient with suspected factor V Leiden disorder. Prior to discharge from the hospital, the patient did report noticing black stools, however he was receiving iron supplementation at that point. Patient had been doing well until earlier this afternoon when he noticed melanotic stools at approximately noon. He did notice increasing frequency of stools, however he does admit to having several loose bowel movements daily at baseline. He reports that in addition to the melanotic stools, he was experiencing lightheadedness and presyncope. He denied any shortness of breath, chest pain, or palpitations. The patient did report an episode of retching with some slight blood-tinged vomitus material, however no rosa red hematemesis noted. Patient does complain of some periumbilical pain as well as some epigastric discomfort as well. Patient was brought to the emergency department where he was found to be hypotensive with a systolic blood pressure in the 70s. His H&H on arrival was found to be 9.7 and 29.1, respectively. Approximately 1.5 hours later, the patient had a drop in his H&H to 8.4 and 25.2. Patient had an episode of tachycardia with a rate in the 150s with changes in position while attempting to go to the bathroom. He did report feeling extremely lightheaded at that time as well. Patient received Protonix bolus followed by drip. 1 unit PRBCs was ordered. He did receive 1 L IV fluids. On evaluation, the patient currently complains of some pee-umbilical discomfort with epigastric pain as well. He currently denies any headaches, dizziness, lightheadedness, chest pain, palpitations, shortness of breath, nausea, vomiting, hematemesis, or weakness in the extremities. He rarely uses NSAIDs. His only new medication is Xarelto. No history of GERD. No prior history of peptic ulcer disease or duodenal ulcers. No significant history of drinking or smoking. Allergies Allergy/AdvReac Type Severity Reaction Status Date / Time Penicillins Allergy Unknown HIVES Verified 09/07/18 19:44 Home Medications Home Medications Medication Instructions Recorded Confirmed Type [id number]-[id number] borate 1 tab PO QAM 07/12/18 09/07/18 History [Move Free Sportmeets] [id number]-eaeffa 1 cap PO QAM 07/12/18 09/07/18 History [krill oil] lovastatin 40 mg PO PM 07/12/18 09/07/18 History metformin 500 mg PO BID 07/12/18 09/07/18 History acetaminophen [Pain Reliever] 1,000 mg PO Q8 30 Days #180 tab 09/04/18 09/07/18 Rx oxycodone 5 - 10 mg PO Q6H PRN 15 Days #40 09/04/18 09/07/18 Rx tab rivaroxaban [Xarelto] 10 mg PO DAILY 28 Days #28 tab 09/04/18 09/07/18 Rx Patient History Medical History Diabetes mellitus, type 2 NIDDM Hyperlipidemia Osteoarthritis Umbilical hernia Surgical History History of colonoscopy History of lithotripsy LEFT ESWL= 09/15/16= "LMA#5 WITH 40CC AIR IN CUFF, EASY, ATRAUMATIC" AT [facility] History of repair of rotator cuff RIGHT Family History Mother Family history of diabetes mellitus Social History marital status: Current Living Situation: Family Other Information That Helps Us Care for You: No Feels Safe at Home: Yes Smoking Status: Never smoker Do You Dip or Chew Tobacco: No Second Hand Exposure: No Hx Alcohol Use: No Hx Substance Use: No Beliefs That Will Affect Care: None Communication Ability: Effective Review of Systems A complete 10 point review of systems was reviewed with the patient with pertinent positives and negatives as per history of present illness. All else were negative. Physical Exam 2 Vital Signs (Past 24 Hours): Last Vital Signs Temp 37.1 C 09/07/18 17:40 Pulse 98 H 09/07/18 20:16 Resp 29 H 09/07/18 20:16 BP 118/65 09/07/18 20:30 Pulse Ox 92 09/07/18 20:30 Physical Exam: VITAL SIGNS - Vital signs and nursing notes were reviewed. GENERAL - 68-year-old male appearing his stated age who is in no acute distress. Communicates well with provider and answers questions appropriately. SKIN - Without rashes. HEAD - NC/AT. EYES - PERRL with EOMI bilaterally. Sclera anicteric. Palpebral conjunctiva PALE and moist with no injection noted. EARS - No deformities of external structures noted on gross examination bilaterally. NOSE - Midline and without cyanosis. No epistaxis or purulent drainage noted. MOUTH/OROPHARYNX - Without perioral cyanosis. Buccal mucosa pink and moist and without leukoplakia. Tongue midline with equal elevation of palate bilaterally. NECK - Neck with FROM. Supple to palpation. LUNGS - Chest wall symmetric without accessory muscle use, intercostals retractions, or central cyanosis. Normal vesicular breath sounds CTA B/L. No wheezes, rales, or rhonchi appreciated. CARDIAC - RRR with S1/S2. No murmur, rubs, or gallops appreciated. ABDOMEN - Abdominal contour flat without pulsations or visible masses. BS normoactive all four quadrants. Mild tenderness to palpation noted in the periumbilical/epigastric area. No palpable masses, hepatosplenomegaly, or ascites noted. EXTREMITIES - No clubbing or peripheral cyanosis. No pretibial edema present. +3 /5 radial and dorsalis pedis pulses palpated throughout. Strenght equal bilaterally throughout. Postoperative incision coverd with TEDs. No active bleeding appreciated. NEUROLOGIC - Cranial nerves II through XII grossly intact. Sensory intact to light touch throughout. PSYCH - A&Ox3 and cooperates fully with examiner. Pt is very pleasant and interacts well with examiner. Results & Data Diagnostic Findings Radiology imaging and reports were reviewed by myself. Radiologist's interpretations are as follows: XR chest 1V portable HISTORY: 68 years-old Male gi bleed acute GI bleed COMPARISON: CT abdomen and pelvis of same day, chest radiograph 07/15/2018 TECHNIQUE: Portable AP view the chest FINDINGS: Mild right hemidiaphragm elevation. Lungs are hypoinflated. Subsegmental bibasilar opacities. Heart is upper limits of normal in size. No pneumothorax or overt pulmonary edema. Degenerative changes of the shoulders and spine. IMPRESSION: Mild right hemidiaphragm elevation with subsegmental bibasilar opacities suggestive of atelectasis. ABDOMEN AND PELVIS CT WITHOUT CONTRAST CT DOSE: 477.40 mGy.cm HISTORY: Acute GI bleed with generalized abdominal pain and vomiting. GI bleed , vomiting, tender umbilical hernia TECHNIQUE: Multiaxial CT images of the abdomen and pelvis were performed without contrast. A dose lowering technique was utilized adhering to the principles of ALARA. COMPARISON STUDY: CT abdomen pelvis 09/12/2016 images only from outside hospital. FINDINGS: Mild subsegmental bibasilar atelectasis with right hemidiaphragmatic elevation. No pneumatosis or pneumoperitoneum identified. Imaged inferior cardiac chambers appear unremarkable. Coronary arterial calcifications are noted. Mild fusiform dilation of the ascending thoracic aorta, 4.0 x 4.0 cm, unchanged. Study is limited without the use of contrast. There are a few subcentimeter hypodense lesions noted about the left hepatic lobe measuring up to 6 mm, indeterminate unchanged statistically favor benign etiology. Liver is otherwise unremarkable. There are a few coarse calcifications noted about the pancreatic tail and pancreatic body. Mild generalized pancreatic atrophy. Adrenal glands and gallbladder appear unremarkable. Mild nonspecific perinephric stranding, right greater than left. No renal calculi, ureteral calculi or obstructive uropathy. Suggested renal sinus cysts on the right. Mild prostamegaly. Urinary bladder is within normal limits. Small fat filled bilateral inguinal hernias. Aorta and IVC are unremarkable. No adenopathy. There is moderate circumferential wall thickening about the pylorus, first and second portions of the duodenum with mild irregularity of the mucosa within this distribution, image 161 series 3. Additionally, there is hyperattenuating material within the duodenal lumen. Moderate surrounding inflammatory stranding. No small bowel obstruction. The remainder of the small and large bowel demonstrates no inflammatory changes or additional wall thickening. Extensive colonic diverticulosis without acute diverticulitis. Terminal ileum and appendix appear unremarkable. Trace fluid tracks along the right pericolic gutter. Ill-defined hypodensity about the right iliacus suggests iliopsoas bursitis. Multilevel facet arthrosis with spondylitic spurring. Remote bilateral L4 pars defects with 10 mm anterolisthesis L4 on L5. Chondrocalcinosis severe intervertebral disc space narrowing of the disc space. Chondrocalcinosis of the facets at this interspace are also present. Chondrocalcinosis of the femoral acetabular joints and pubic symphysis. Small fat filled periumbilical hernia, diastases 1.9 cm. IMPRESSION: 1. Limited study without the use of contrast. 2. Moderate circumferential wall thickening about the pylorus, first and second portions of the duodenum with mild irregularity of the duodenal mucosa is suggestive of underlying peptic ulcer disease or ulcerative mucosal lesion. Hyperattenuating material within the duodenal lumen suggests intraluminal hemorrhage. These findings could be correlated with endoscopy. 3. Moderate likely reactive paraduodenal inflammation. 4. No pneumatosis or pneumoperitoneum. 5. Colonic diverticulosis without acute diverticulitis. 6. Fusiform aneurysmal dilation of the ascending thoracic aorta, 4.0 x 4.0 cm. 7. Additional findings as above. _ (1) Hypotension Hypotension type: unspecified hypotension type Trimester: Qualified Code(s) : I95.9 - Hypotension, unspecified
[2018-09-07 21:06] LABS: Hematocrit (blood only) 23.2 % (42-52); Hemoglobin 7.8 g/dL (14.0-18.0)
[2018-09-07 21:22] LABS: BUN Creatinine Ratio 33.9 (10-20); Blood Urea Nitrogen 34 mg/dl (7-18); Calcium 7.6 mg/dl (8.5-10.1); Carbon Dioxide 24 mmol/L (21-32); Chloride 105 mmol/L (98-107); Est GFR (African American) 88.8; Est GFR (Non-African American) 76.6; Glucose 194 mg/dl (70-99); Potassium 3.9 mmol/L (3.5-5.1); Sodium 138 mmol/L (136-145)
[2018-09-07 21:28] LABS: Troponin I 0.024 ng/ml (0-0.045)
[2018-09-07] MEDS: CEFEPIME 1,000 MG in SYRINGE 0 ML IV SCH (21:46)
[2018-09-07] MEDS: SODIUM CHLORIDE 0.9% 1000ML 1,000 ML IV SCH (21:47)
[2018-09-07] MEDS: INSULIN ASPART 100 UNITS/ML 3 ML PEN SC SCH (21:52)
[2018-09-07] MEDS ORDERED: MoRPHine SULFATE 4 MG/ML 1 ML CARP\\VIAL IV PRN (22:22)
--- NOTE | 2018-09-07 22:29 | History & Physical Report ---
Date of Service September 07, 2018 Assessment & Plan (1) Admitted to intensive care unit: Patient will be admitted to the ICU due to hypotension associated with symptomatic anemia secondary to acute GI bleeding from duodenal ulcer with hemorrhage. Present on Admission?: Yes (2) Duodenal ulcer with hemorrhage: CT noted duodenal ulcer with intraluminal hemorrhage. Continue Protonix drip begun in the ED. NPO. NSS + KCl 20 mEq at 100 mils per hour. Admit to the intensive care unit. Zofran 4 mg IV every 6 hours as needed. Cefepime 1 g IV every 8 hours. H&H every 6 hours. We will anticipate transfusing 2 units PRBCs now, and check H&H shortly thereafter. Discusswith Dr. Sahu reversal of Xarelto. Consult chuck splitter Dr. Maurer. Consult sub arc operator Dr. Ribeiro. Patient has history of factor V Leiden. Will order venous Dopplers of bilateral lower extremities, and if negative, begin SCDs. Present on Admission?: Yes (3) Acute blood loss anemia: See above Present on Admission?: Yes (4) Hypotension: See above Present on Admission?: Yes (5) Acute GI bleeding: See above Present on Admission?: Yes (6) Symptomatic anemia: See above Present on Admission?: Yes (7) Factor V Leiden: Xarelto has been discontinued due to GI bleed. SCDs for DVT prophylaxis after venous Dopplers have been found to be negative. Continue to follow closely. Present on Admission?: Yes (8) Diabetes mellitus: Hold metformin [address] twice daily. Place on Accu-Cheks before meals and at bedtime with NovoLog coverage per scale. Present on Admission?: Yes (9) Hyperlipidemia LDL goal <70: Hold lovastatin 40 mg p.o. every evening, until taking oral medications again. Present on Admission?: Yes (10) Thoracic ascending aortic aneurysm: Ascending thoracic aortic aneurysm 4.0 x 4.[address] Will need to be making an appointment to establish with vascular surgery for follow-up. Present on Admission?: Yes (11) S/P total knee arthroplasty: Patient may continue to do range of motion exercises while in bed. We need to consult PT/OT once medically stable. Present on Admission?: Yes (12) Iliopsoas bursitis of right hip: Monitor for now. No active treatment with NSAIDs, due to GI bleed. Present on Admission?: Yes History of Present Illness Chief Complaint: The patient presents to the emergency department with development of dark to maroon colored stools that began on 09/06, and worsened today prior to arrival. Primary Care Provider: Maurice Wang MD The patient is a 68-year-old male who underwent an uneventful right total knee arthroplasty by Dr. Jose Keene on 09/03, and was discharged home on 09/05 on Xarelto. The patient began to develop episodes of nausea and vomiting with dry heaving yesterday, with the last episode having a small blood-tinged to it. He developed dark to maroon stools yesterday, that have worsened today, and presents to the emergency department to be assessed. He has no previous history of GI bleeding. He does have a history of factor V Leiden, without history of DVT. He also does report lightheadedness with standing. Allergies Allergy/AdvReac Type Severity Reaction Status Date / Time Penicillins Allergy Unknown HIVES Verified 09/07/18 19:44 Home Medications Home Medications Medication Instructions Recorded Confirmed Type [id number]-qwkzq-zuvvc-CF borate 1 tab PO QAM 07/12/18 09/07/18 History [[facility]] rouqs-oablg-0-eox-cfp-pqttdt 1 cap PO QAM 07/12/18 09/07/18 History [krill oil] lovastatin 40 mg PO PM 07/12/18 09/07/18 History metformin 500 mg PO BID 07/12/18 09/07/18 History acetaminophen [Pain Reliever] 1,000 mg PO Q8 30 Days #180 tab 09/04/18 09/07/18 Rx oxycodone 5 - 10 mg PO Q6H PRN 15 Days #40 09/04/18 09/07/18 Rx tab rivaroxaban [Xarelto] 10 mg PO DAILY 28 Days #28 tab 09/04/18 09/07/18 Rx Past Med/Surg History Medical History Diabetes mellitus, type 2 NIDDM Hyperlipidemia Osteoarthritis Umbilical hernia Surgical History History of colonoscopy History of lithotripsy LEFT ESWL= 09/15/16= "LMA#5 WITH 40CC AIR IN CUFF, EASY, ATRAUMATIC" AT [facility] History of repair of rotator cuff RIGHT Family History Mother Family history of diabetes mellitus Social History marital status: Current Living Situation: Family Other Information That Helps Us Care for You: No Feels Safe at Home: Yes Smoking Status: Never smoker Do You Dip or Chew Tobacco: No Second Hand Exposure: No Hx Alcohol Use: No Hx Substance Use: No Beliefs That Will Affect Care: None Communication Ability: Effective Veneer Stock Layer Required: No Review of Systems The patient denies chest pain, palpitations, shortness of breath, dyspnea on exertion, cough, lower extremity swelling, sore throat, fevers, chills, sweats, constipation, pelvic pain, blood in urine, dysuria, urinary frequency or urgency, headache, memory loss, loss of consciousness, rash, focal weakness, numbness or tingling in arms or legs, generalized arthralgias or myalgias, back or neck pain, or night sweats. The review of systems is otherwise negative other than for that already noted above, and at least 10 systems have been reviewed. Physical Exam 2 Vital Signs (Past 24 Hours): Last Vital Signs Temp 36.7 C 09/07/18 22:02 Pulse 94 H 09/07/18 22:02 Resp 17 09/07/18 22:02 BP 128/68 09/07/18 22:02 Pulse Ox 95 09/07/18 22:02 Physical Exam: The patient is awake, alert and oriented 3, well developed and well nourished, normocephalic and atraumatic, lying in bed and in no acute distress. HEENT--PERRL, EOMI, mucous membranes and oropharynx dry. Neck--supple. No JVD. No bruits. Thyroid normal, trachea midline, no adenopathy. Heart--normal S1 and S2. No murmurs, rubs or gallops. Lungs--clear bilaterally, no respiratory distress, no accessory muscle use. Abdomen--normal bowel sounds and soft. Nontender. Nondistended, no hernias or masses, no organomegaly. Extremities--no cyanosis or clubbing. No edema. There are good distal pulses b/ l. Dermatologic--normal skin turgor, normal color, no abnormal lymph nodes, no rash. Neurologic--cranial nerves II through XII grossly intact. Rheumatologic--normal range of motion. Psychiatric--normal affect. Results & Data Laboratory Results Laboratory Results WBC 13.10 K/uL (4.8-10.8) H 09/07/18 17:50 RBC 3.23 M/uL (4.7-6.1) L 09/07/18 17:50 Hgb 9.5 g/dL (14.0-18.0) L 09/08/18 00:31 POC Hgb 9.5 g/dl (14.0-18.0) L 09/07/18 18:08 Hct 27.8 % (42-52) L 09/08/18 00:31 POC Hct 28 % (42-52) L 09/07/18 18:08 MCV 90.1 fL (80-100) 09/07/18 17:50 MCH 30.0 pg (25-34) 09/07/18 17:50 MCHC 33.3 g/dL (32-36) 09/07/18 17:50 RDW Std Deviation 43.9 fL (36.4-46.3) 09/07/18 17:50 RDW Coeff of Fred 13.3 % (11.5-14.5) 09/07/18 17:50 Plt Count 296 K/uL (130-400) 09/07/18 17:50 MPV 9.4 fL (7.4-10.4) 09/07/18 17:50 Immature Gran % (Auto) 0.2 % 09/07/18 17:50 Neut % (Auto) 72.7 % 09/07/18 17:50 Lymph % (Auto) 17.6 % 09/07/18 17:50 [place] % (Auto) 9.2 % 09/07/18 17:50 Eos % (Auto) 0.2 % 09/07/18 17:50 Baso % (Auto) 0.1 % 09/07/18 17:50 Immature Gran # (Auto) 0.03 K/uL (0.00-0.02) H 09/07/18 17:50 Neut # (Auto) 9.53 K/uL (1.4-6.5) H 09/07/18 17:50 Lymph # (Auto) 2.30 K/uL (1.2-3.4) 09/07/18 17:50 [place] # (Auto) 1.20 K/uL (0.11-0.59) H 09/07/18 17:50 Eos # (Auto) 0.03 K/uL (0-0.5) 09/07/18 17:50 Baso # (Auto) 0.01 K/uL (0-0.2) 09/07/18 17:50 PT 11.0 Seconds (9.0-12.0) 09/07/18 17:50 INR 1.1 (0.9-1.1) 09/07/18 17:50 APTT 30.3 Seconds (21.0-31.0) 09/07/18 17:50 PTT Ratio 1.2 09/07/18 17:50 POC Sodium 138 mEq/L (135-144) 09/07/18 18:08 Sodium 138 mmol/L (136-145) 09/07/18 20:57 POC Potassium 3.5 mEq/L (3.3-5.0) 09/07/18 18:08 Potassium 3.9 mmol/L (3.5-5.1) 09/07/18 20:57 POC Chloride 100 mEq/L (101-112) L 09/07/18 18:08 Chloride 105 mmol/L (98-107) 09/07/18 20:57 Carbon Dioxide 24 mmol/L (21-32) 09/07/18 20:57 POC Total CO2 23 mEq/l (24-31) L 09/07/18 18:08 Anion Gap 9.0 (3-11) 09/07/18 20:57 POC Anion Gap 19.0 mmol/L (16-25) 09/07/18 18:08 POC BUN 29 mg/dl (7-18) H 09/07/18 18:08 BUN 34 mg/dl (7-18) H 09/07/18 20:57 Creatinine 1.01 mg/dl (0.6-1.4) 09/07/18 20:57 POC Creatinine 1.1 mg/dl (0.6-1.3) 09/07/18 18:08 Est Cr Clr Drug Dosing Not Reportable 09/07/18 20:57 Est GFR ( Amer) 88.8 09/07/18 20:57 Est GFR (Non-Af Amer) 76.6 09/07/18 20:57 BUN/Creatinine Ratio 33.9 (10-20) H 09/07/18 20:57 Glucose 194 mg/dl (70-99) H 09/07/18 20:57 POC Glucose 211 (70-99) H 09/07/18 21:19 POC Glucose (other) 216 mg/dl (70-99) H 09/07/18 18:08 Calcium 7.6 mg/dl (8.5-10.1) L 09/07/18 20:57 POC Ioniz Calcium [place] 1.11 mmol/l (1.12-1.32) L 09/07/18 18:08 Total Bilirubin 1.3 mg/dl (0.2-1) H 09/07/18 17:50 AST 14 U/L (15-37) L 09/07/18 17:50 ALT 17 U/L (12-78) 09/07/18 17:50 Alkaline Phosphatase 57 U/L (45-117) 09/07/18 17:50 Troponin I 0.024 ng/ml (0-0.045) 09/07/18 20:57 Total Protein 6.1 gm/dl (6.4-8.2) L 09/07/18 17:50 Albumin 2.6 gm/dl (3.4-5.0) L 09/07/18 17:50 Globulin 3.5 gm/dl (2.5-4.0) 09/07/18 17:50 Albumin/Globulin Ratio 0.7 (0.9-2) L 09/07/18 17:50 Lipase 92 U/L (73-393) 09/07/18 17:50 Nasal Screen MRSA (PCR) Negative (Negative) 09/07/18 Unknown POC Stool Occult Blood Positive (Negative) H 09/07/18 18:05 Blood Type A Positive 09/07/18 17:50 Antibody Screen NEGATIVE 09/07/18 17:50 Crossmatch See Detail 09/07/18 17:50 Diagnostic Findings [facility], [place] [phone] CT Scan Report Patient: DARLINE RAY LAdmit Date: 09/07/18 MR#: [id number]: [id number] Acct ID:[id number]: Date: 1950[facility] Zip: [place] [id number] Age: 68Location: ED Sex: M Room/Bed: Att Phy: Diagnosis: BLOOD IN STOOL Gina Phy: Maurice Wang MDService Date: 09/07/18 Fam Phy: Jose Keene MDInterpreting Phy: Addy Malik Admit Phy: Ordering Phy: Adeel Sultana MD cc: ~ ABDOMEN AND PELVIS CT WITHOUT CONTRAST CT DOSE: 477.40 mGy.cm HISTORY: Acute GI bleed with generalized abdominal pain and vomiting. GI bleed , vomiting, tender umbilical hernia TECHNIQUE: Multiaxial CT images of the abdomen and pelvis were performed without contrast. A dose lowering technique was utilized adhering to the principles of ALARA. COMPARISON STUDY: CT abdomen pelvis 09/12/2016 images only from outside hospital. FINDINGS: Mild subsegmental bibasilar atelectasis with right hemidiaphragmatic elevation. No pneumatosis or pneumoperitoneum identified. Imaged inferior cardiac chambers appear unremarkable. Coronary arterial calcifications are noted. Mild fusiform dilation of the ascending thoracic aorta, 4.0 x 4.0 cm, unchanged. Study is limited without the use of contrast. There are a few subcentimeter hypodense lesions noted about the left hepatic lobe measuring up to 6 mm, indeterminate unchanged statistically favor benign etiology. Liver is otherwise unremarkable. There are a few coarse calcifications noted about the pancreatic tail and pancreatic body. Mild generalized pancreatic atrophy. Adrenal glands and gallbladder appear unremarkable. Mild nonspecific perinephric stranding, right greater than left. No renal calculi, ureteral calculi or obstructive uropathy. Suggested renal sinus cysts on the right. Mild prostamegaly. Urinary bladder is within normal limits. Small fat filled bilateral inguinal hernias. Aorta and IVC are unremarkable. No adenopathy. There is moderate circumferential wall thickening about the pylorus, first and second portions of the duodenum with mild irregularity of the mucosa within this distribution, image 161 series 3. Additionally, there is hyperattenuating material within the duodenal lumen. Moderate surrounding inflammatory stranding. No small bowel obstruction. The remainder of the small and large bowel demonstrates no inflammatory changes or additional wall thickening. Extensive colonic diverticulosis without acute diverticulitis. Terminal ileum and appendix appear unremarkable. Trace fluid tracks along the right pericolic gutter. Ill-defined hypodensity about the right iliacus suggests iliopsoas bursitis. Multilevel facet arthrosis with spondylitic spurring. Remote bilateral L4 pars defects with 10 mm anterolisthesis L4 on L5. Chondrocalcinosis severe intervertebral disc space narrowing of the disc space. Chondrocalcinosis of the facets at this interspace are also present. Chondrocalcinosis of the femoral acetabular joints and pubic symphysis. Small fat filled periumbilical hernia, diastases 1.9 cm. IMPRESSION: 1. Limited study without the use of contrast. 2. Moderate circumferential wall thickening about the pylorus, first and second portions of the duodenum with mild irregularity of the duodenal mucosa is suggestive of underlying peptic ulcer disease or ulcerative mucosal lesion. Hyperattenuating material within the duodenal lumen suggests intraluminal hemorrhage. These findings could be correlated with endoscopy. 3. Moderate likely reactive paraduodenal inflammation. 4. No pneumatosis or pneumoperitoneum. 5. Colonic diverticulosis without acute diverticulitis. 6. Fusiform aneurysmal dilation of the ascending thoracic aorta, 4.0 x 4.0 cm. 7. Additional findings as above. Electronically signed by: Phillip Malik M.D. 09/07/2018 6:57 PM Dictated: 09/07/181842 Transcribed: 09/07/181842 Medications Administered Cefepime HCl 1,000 mg/ Syringe 11.3 mls @ 5.5 mls/min IV Q8H KIMBERLY Stop: 09/17/18 20:59 Last Admin: 09/07/18 21:46 Dose: 5.5 mls/min Sodium Chloride (Nss 1000ml) 1,000 mls @ 100 mls/hr IV .Q10H KIMBERLY Stop: 10/07/18 20:59 Last Infusion: 09/07/18 22:34 Dose: 0 mls/hr Admin: 09/07/18 21:47 Dose: 100 mls/hr Insulin Aspart (Novolog Flexpen) 0 units SC ACHS KIMBERLY Stop: 10/07/18 20:59 Last Admin: 09/07/18 21:52 Dose: 3 units Code Status & VTE Plan Code Status Full code VTE Prophylaxis Plan VTE Prophylaxis will be ordered: Yes Critical Care Time Total critical care time was 45 minutes Critical Care Time: Yes Total Critical Care Time: 45 _ (1) Hypotension Hypotension type: unspecified hypotension type Trimester: Qualified Code(s) : I95.9 - Hypotension, unspecified
[2018-09-08 00:45] LABS: Hematocrit (blood only) 27.8 % (42-52); Hemoglobin 9.5 g/dL (14.0-18.0)
[2018-09-08 02:59] LABS: Basophils # (auto) 0.01 K/uL (0-0.2); Basophils % (auto) 0.1 %; Eosinophils # (auto) 0.03 K/uL (0-0.5); Eosinophils % (auto) 0.4 %; Hematocrit (blood only) 25.9 % (42-52); Hemoglobin 8.8 g/dL (14.0-18.0); Immature Granulocytes # (auto) 0.03 K/uL (0.00-0.02); Immature Granulocytes % (auto) 0.4 %; Lymphocytes # (auto) 1.68 K/uL (1.2-3.4); Lymphocytes % (auto) 24.1 %; Mean Corpuscular Volume 89.6 fL (80-100); Monocytes % (auto) 10.1 %; Neutrophils # (auto) 4.51 K/uL (1.4-6.5); Neutrophils % (auto) 64.9 %; Platelet Count 182 K/uL (130-400); RDW Coefficient of Variation 13.9 % (11.5-14.5); RDW Standard Deviation 45.7 fL (36.4-46.3); Red Blood Count 2.89 M/uL (4.7-6.1); White Blood Count 6.96 K/uL (4.8-10.8)
[2018-09-08 03:08] LABS: INR 1.1 (0.9-1.1); Partial Thromboplastin Ratio 1.1; Partial Thromboplastin Time 29.6 Seconds (21.0-31.0)
[2018-09-08 03:23] LABS: Albumin Level 2.4 gm/dl (3.4-5.0); Bilirubin Direct 0.4 mg/dl (0-0.2); Bilirubin,Total 2.1 mg/dl (0.2-1); Magnesium 2.1 mg/dl (1.8-2.4); Phosphorus 2.4 mg/dl (2.5-4.9); Total Protein 5.2 gm/dl (6.4-8.2); Troponin I 0.025 ng/ml (0-0.045)
[2018-09-08 03:41] LABS: RBC Morphology Unremarkable
[2018-09-08 04:44] LABS: Basophils # (auto) 0.01 K/uL (0-0.2); Basophils % (auto) 0.2 %; Eosinophils # (auto) 0.05 K/uL (0-0.5); Eosinophils % (auto) 0.8 %; Hematocrit (blood only) 24.1 % (42-52); Hemoglobin 8.2 g/dL (14.0-18.0); Immature Granulocytes # (auto) 0.03 K/uL (0.00-0.02); Immature Granulocytes % (auto) 0.5 %; Lymphocytes # (auto) 1.43 K/uL (1.2-3.4); Lymphocytes % (auto) 22.5 %; Mean Corpuscular Volume 88.6 fL (80-100); Mean Platelet Volume 8.9 fL (7.4-10.4); Monocytes # (auto) 0.62 K/uL (0.11-0.59); Monocytes % (auto) 9.8 %; Neutrophils # (auto) 4.21 K/uL (1.4-6.5); Neutrophils % (auto) 66.2 %; Platelet Count 170 K/uL (130-400); RDW Coefficient of Variation 13.9 % (11.5-14.5); RDW Standard Deviation 45.3 fL (36.4-46.3); Red Blood Count 2.72 M/uL (4.7-6.1); White Blood Count 6.35 K/uL (4.8-10.8)
[2018-09-08] MEDS ORDERED: SODIUM CHLORIDE 0.9% 250 ML IV PRN (04:51)
[2018-09-08 05:01] LABS: BUN Creatinine Ratio 31.6 (10-20); Calcium 7.4 mg/dl (8.5-10.1); Creatinine Clr Calc Pharmacy 88.7 ml/min; Est GFR (Non-African American) 88.9; Potassium 3.8 mmol/L (3.5-5.1)
[2018-09-08] MEDS: CEFEPIME 1,000 MG in SYRINGE 0 ML IV SCH ×3 (05:27→20:45)
--- NOTE | 2018-09-08 05:43 | Ultrasound Report ---
US venous doppler LE CLINICAL HISTORY: 68 years-old Male presenting with assess for DVT. TECHNIQUE: Real-time grayscale and color and spectral Doppler ultrasound imaging of the veins of the bilateral lower extremities was performed. Compression and augmentation were also utilized. COMPARISON: None. FINDINGS: RIGHT: Common femoral vein: Patent. Greater saphenous vein (superficial): Patent. Deep femoral vein: Patent. Femoral vein: Patent. Popliteal vein: Patent. Calf veins: Patent. LEFT: Common femoral vein: Patent. Greater saphenous vein (superficial): Patent. Deep femoral vein: Patent. Femoral vein: Patent. Popliteal vein: Patent. Calf veins: Patent. Other: Subcutaneous edema with dilated lymphatics in the right lower leg. IMPRESSION: 1. No evidence of deep venous thrombosis. 2. Right lower leg edema. Electronically signed by: Ferny Murray M.D. 09/08/2018 5:41 AM
[2018-09-08 05:44] LABS: RBC Morphology Unremarkable
--- NOTE | 2018-09-08 07:52 | Hospitalist Progress Note ---
Date of Service September 08, 2018 Assessment & Plan (1) Admitted to intensive care unit: Patient will be admitted to the ICU due to hypotension associated with symptomatic anemia secondary to acute GI bleeding from duodenal ulcer with hemorrhage. (2) Duodenal ulcer with hemorrhage: CT suggestive of pyloric thickening questionable ulcer and duodenal hemorrhage patient was seen by Dr. Ribeiro he is hemodynamically stable with stable blood counts after transfusion we will not proceed with endoscopy unless it is deemed to be urgent plans on doing schedule endoscopy 09/09 Continue Protonix drip begun in the ED. 3 units packed cells 1 unit fresh frozen plasma Cefepime 1 g IV every [address] Sahu reversal of Xarelto. blanking machine operator Dr. Maurer.prepared foods team leader Dr. Ribeiro. Patient has history of factor V Leiden. Negative venous Dopplers of bilateral lower extremities, begin SCDs. CT noted Moderate circumferential wall thickening about the pylorus, first and second portions of the duodenum with mild irregularity of the duodenal mucosa is suggestive of underlying peptic ulcer disease or ulcerative mucosal lesion. Hyperattenuating material within the duodenal lumen suggests intraluminal hemorrhage. These findings could be correlated with endoscopy. Moderate likely reactive paraduodenal inflammation. No pneumatosis or pneumoperitoneum.Colonic diverticulosis without acute diverticulitis. Fusiform aneurysmal dilation of the ascending thoracic aorta, 4.0 x 4.0 cm. (3) Acute blood loss anemia: concern for upper GI bleed from peptic or duodenal ulcer status post 3 units packed cells 1 unit FFP (4) Hypotension: secondary to acute blood loss anemia will support with volume ressusitation (5) Acute GI bleeding: on protonix gtt and will have endoscopic consideration (6) Symptomatic anemia: See above (7) Factor V Leiden: Xarelto has been discontinued due to GI bleed. SCDs for DVT prophylaxis after venous Dopplers have been found to be negative. Continue to follow closely. (8) Diabetes mellitus: Hold metformin [address] twice daily. Place on Accu-Cheks before meals and at bedtime with NovoLog coverage per scale. (9) Hyperlipidemia LDL goal <70: Hold lovastatin 40 mg p.o. every evening, until taking oral medications again. (10) Thoracic ascending aortic aneurysm: Ascending thoracic aortic aneurysm 4.0 x 4.[address] Will need to be making an appointment to establish with vascular surgery for follow-up. (11) S/P total knee arthroplasty: Patient may continue to do range of motion exercises while in bed. We need to consult PT/OT once medically stable. (12) Iliopsoas bursitis of right hip: Monitor for now. No active treatment with NSAIDs, due to GI bleed. Subjective Patient was seen in the ICU is without distress he received 3 units packed cells 1 unit of fresh frozen plasma because he was on Xarelto. His hemoglobin has been stable as well as his vital signs and gastroenterology is not planning on pursuing any intervention until 09/09 Patient has some mild discomfort in his abdomen otherwise he feels in no additional distress Review of Systems ROS: well nourished well developed. No double vision blurry vision No problems with speech or swallowing No palpitations, chest pain or pressure No Wheezing or breathing issues No abdominal pain nausea vomiting diarrhea changes in appetite or weight No burning urine urine frequency or changes in color Patient has some discomfort to his right knee as that he is recently had a replacement in the last week No skin rashes or oral lesions No unusual bruising or bleeding expected postop right knee No focused back pain or numbness or loss of strength No changes in memory or confusion Physical Exam 2 Vital Signs (Past 24 Hours): Last Vital Signs Temp 37.2 C 09/08/18 06:15 Pulse 76 09/08/18 07:15 Resp 18 09/08/18 07:15 BP 120/69 09/08/18 07:15 Pulse Ox 96 09/08/18 07:15 The patient appeared well nourished and normally developed. Vital signs as documented. There is stable now Head exam is unremarkable. normocephalic, atraumatic Neck is without jugular venous distension, thyromegaly, or lymphademopathy Lungs are clear to auscultation and percussion. Cardiac exam reveals Rhythm is regular. First and second heart sounds normal. Abdominal exam reveals hypoactive bowel sounds, no masses, no organomegaly Extremities are nonedematous and both pedal pulses are present he is a incision in his right knee with some serous discharge on dressing there is no fluctuance redness or tenderness Neurologic exam is A&Ox3, no focal deficits, strength is equal bilateral Psychologically seems neither anxious or depressed Skin is warm Dry without bruises or lesions _ (1) Hypotension Hypotension type: unspecified hypotension type Trimester: Qualified Code(s) : I95.9 - Hypotension, unspecified
[2018-09-08] MEDS: SODIUM CHLORIDE 0.9% 1000ML 1,000 ML IV SCH ×2 (08:31→18:13)
[2018-09-08] MEDS: INSULIN ASPART 100 UNITS/ML 3 ML PEN SC SCH ×4 (08:31→20:45)
[2018-09-08] MEDS: PANTOprazole 40 MG in DEXTROSE 5% 100 ML IV SCH ×4 (08:37→23:04)
[2018-09-08] MEDS ORDERED: FAMOTIDINE 20 MG in SYRINGE 3 ML IV SCH (09:00)
[2018-09-08 09:02] LABS: Hematocrit (blood only) 26.8 % (42-52); Hemoglobin 9.1 g/dL (14.0-18.0)
--- NOTE | 2018-09-08 11:33 | Consultation Report ---
DATE OF CONSULTATION: 09/08/2018 REASON FOR CONSULTATION: GI bleeding. HISTORY OF PRESENT ILLNESS: The patient is a 68-year-old who underwent a right knee replacement on 09/03/2018. The patient was hospitalized for 2 days and was discharged on Xarelto. The patient developed some epigastric pain and nausea and started having dark stools. The dark stools were attributed to iron which he was taking, but then yesterday, he got extremely weak and was having about 3 maroon stools. He vomited several times, but then had a little bit of blood in the final time that he threw up. He presented to the Emergency Room where his hemoglobin was 9.5, which is 3 g down from his surgery. His blood pressure was 80 systolic and he was tachycardic. CT scan showed thickening of the pylorus and duodenum suggesting a duodenal ulcer. He was resuscitated with IV fluids and given 3 units of red cells and 1 unit of plasma. He has had 2 loose melenic stools this morning, but his vital signs are normal and his nausea and abdominal symptoms are improved. He was taking Xarelto for DVT prophylaxis, but also because he has factor V Leiden deficiency, currently getting IV Protonix. GI consultation has been requested because of GI bleeding. PAST MEDICAL HISTORY: Remarkable for degenerative arthritis status post right knee replacement, has had factor V Leiden deficiency. He has got diabetes, on oral agents. Hyperlipidemia. He has got a thoracic ascending aortic aneurysm which is 4 cm. He has iliopsoas bursitis. HOME MEDICATIONS: Glucosamine chondroitin, fish oil, lovastatin, metformin, acetaminophen, oxycodone and Xarelto. ALLERGIES: PENICILLIN. FAMILY HISTORY: Mother has diabetes. SOCIAL HISTORY: The patient had a colonoscopy about 3-4 years ago in [place] by Dr. Mendez, which was normal. The patient is . Never smoked. No alcohol. REVIEW OF SYSTEMS: Positive for some weakness, postsurgical pain in his right knee. The remainder is negative. PHYSICAL EXAMINATION: GENERAL: The patient appears in no acute distress. VITAL SIGNS: Blood pressure is 128/70, pulse 90. He is afebrile with a temperature of 36.7. Room air oxygen saturations 95%. ABDOMEN: Soft. He has small umbilical hernia which appears to have some trapped bowel or mesenteric fat, which is slightly tender. SKIN: Scar over right knee. Skin is mildly pale. LABORATORY DATA: Show white count of 13.10, hemoglobin 9.5, platelets 296,000. BUN 34, creatinine 1.01. INR is 1.1. IMPRESSION AND PLAN: The patient has gastrointestinal bleeding probably from a duodenal or pyloric ulcer. The bleeding appears to have stopped and his vital signs are stable. His hemoglobin is stable after 3 units of blood and 1 unit of plasma. The patient will continue on IV Protonix and plan on putting him on clear liquids and because he is stable, we will proceed with his EGD tomorrow unless he shows signs of active bleeding later today. We will also get a stool for H. pylori.
[2018-09-08 14:49] LABS: Hematocrit (blood only) 27.3 % (42-52); Hemoglobin 9.3 g/dL (14.0-18.0)
--- NOTE | 2018-09-08 17:59 | Critical Care Progress Note ---
Date of Service September 08, 2018 Assessment & Plan (1) Acute GI bleeding: Impression: 1. Upper GI bleeding, noted abnormality on the CAT scan at the duodenum. 2. Factor V Leiden deficiency. 3. Total knee replacement a week ago right-sided. 4. Diabetes mellitus. 5. History of thoracic ascending aortic aneurysm. Plan: 1. Continue to monitor hematocrit. 2. Appreciate GI input. Patient is going to be n.p.o. after midnight for EGD in the morning. 3. Continue IV fluid. 4. Transfuse the patient with the blood accordingly if his hematocrit dropping down below than 21 or has active bleeding. 5. Discontinue Xarelto. 6. Ultimately the patient will need anticoagulation once his GI bleed resolved entirely. 7. Glucose control. 8. Clear liquid diet provided today per GI. Discussed with the staff on rounds and details, critical care time spent with the patient was 35 minutes. Subjective The patient is stable today, denies any pain, no nausea or vomiting, no diarrhea , presented to the hospital with melena converted to bloody stool. The patient has been maintained on Xarelto after recent right total knee replacement. Xarelto was stopped and received only 2 doses since the procedure. No dizziness , no pain, no shortness of breath. Review of system otherwise unremarkable. Physical Exam 2 Vital Signs (Past 24 Hours): Last Vital Signs Temp 36.5 C 09/08/18 16:01 Pulse 77 09/08/18 16:37 Resp 21 09/08/18 16:37 BP 117/68 09/08/18 16:37 Pulse Ox 94 09/08/18 16:37 Physical Exam: Vital signs are stable, O2 saturation 94% on 2 L, no fever, S1- S2 regular rate and rhythm, lungs are clear, abdomen is soft and benign, ventral hernia was noted, expectedly right knee edema postop, otherwise unremarkable. Neurologically he is intact. Results & Data Laboratory Results Hematocrit is stable at 27. Platelets are stable as well. BUN/creatinine ratio is 31. Diagnostic Findings Abdominal CT results were noted. Chest x-ray without evidence of pulmonary disease.
[2018-09-08] MEDS: ACETAMINOPHEN 1000 MG/100 ML IV IV PRN (22:09)
[2018-09-09] MEDS: SODIUM CHLORIDE 0.9% 1000ML 1,000 ML IV SCH ×2 (03:42→13:42)
[2018-09-09] MEDS: PANTOprazole 40 MG in DEXTROSE 5% 100 ML IV SCH ×4 (03:42→21:16)
[2018-09-09] MEDS: CEFEPIME 1,000 MG in SYRINGE 0 ML IV SCH ×3 (05:48→21:17)
[2018-09-09] MEDS: INSULIN ASPART 100 UNITS/ML 3 ML PEN SC SCH ×4 (05:52→21:17)
[2018-09-09 08:00] LABS: Basophils # (auto) 0.02 K/uL (0-0.2); Basophils % (auto) 0.3 %; Eosinophils # (auto) 0.26 K/uL (0-0.5); Eosinophils % (auto) 4.2 %; Hematocrit (blood only) 26.7 % (42-52); Immature Granulocytes # (auto) 0.09 K/uL (0.00-0.02); Immature Granulocytes % (auto) 1.5 %; Lymphocytes # (auto) 1.27 K/uL (1.2-3.4); Lymphocytes % (auto) 20.6 %; Mean Corpuscular Hgb Conc 33.7 g/dL (32-36); Mean Corpuscular Volume 87.8 fL (80-100); Mean Platelet Volume 9.5 fL (7.4-10.4); Monocytes # (auto) 0.43 K/uL (0.11-0.59); Neutrophils # (auto) 4.09 K/uL (1.4-6.5); Neutrophils % (auto) 66.4 %; Nucleated RBC # (auto) 0.02 K/uL (0-0); Nucleated RBC % (auto) 0.3 %; Platelet Count 180 K/uL (130-400); RDW Coefficient of Variation 14.6 % (11.5-14.5); RDW Standard Deviation 46.5 fL (36.4-46.3); Red Blood Count 3.04 M/uL (4.7-6.1); White Blood Count 6.16 K/uL (4.8-10.8)
--- NOTE | 2018-09-09 08:12 | Hospitalist Progress Note ---
Date of Service September 09, 2018 Assessment & Plan (1) Admitted to intensive care unit: Initially Patient was admitted to the ICU due to hypotension associated with symptomatic anemia secondary to acute GI bleeding from duodenal ulcer with hemorrhage. Patient is now in Tele. Awaiting upper endoscopy which will be done later today. (2) Duodenal ulcer with hemorrhage: CT suggestive of pyloric thickening questionable ulcer and duodenal hemorrhage patient was seen by Dr. Ribeiro. Patient is currently hemodynamically stable after transfusions. 3 units packed cells 1 unit fresh frozen plasma EGD is planned for today (09/09) Continue Protonix drip begun in the ED. Cefepime 1 g IV every 8 hours. Team had discussed with Dr. Sahu reversal of Xarelto. software licensing specialist Dr. Maurer.portable track crew chief Dr. Ribeiro. Patient has history of factor V Leiden. Negative venous Dopplers of bilateral lower extremities, begin SCDs. CT scan findings CT noted Moderate circumferential wall thickening about the pylorus, first and second portions of the duodenum with mild irregularity of the duodenal mucosa is suggestive of underlying peptic ulcer disease or ulcerative mucosal lesion. Hyperattenuating material within the duodenal lumen suggests intraluminal hemorrhage. These findings could be correlated with endoscopy. Moderate likely reactive paraduodenal inflammation. No pneumatosis or pneumoperitoneum.Colonic diverticulosis without acute diverticulitis. Fusiform aneurysmal dilation of the ascending thoracic aorta, 4.0 x 4.0 cm. (3) Acute blood loss anemia: concern for upper GI bleed from peptic or duodenal ulcer status post 3 units packed cells 1 unit FFP Hemoglobin has been stable at 9.0 today (09/09) (4) Hypotension: secondary to acute blood loss anemia will support with volume ressusitation BP is currently controlled (5) Acute GI bleeding: on protonix gtt and will have endoscopic consideration (6) Symptomatic anemia: See above (7) Factor V Leiden: Xarelto has been discontinued due to GI bleed. SCDs for DVT prophylaxis after venous Dopplers have been found to be negative. Continue to follow closely. (8) Diabetes mellitus: Hold metformin 500 mg p[address] twice daily. Place on Accu-Cheks before meals and at bedtime with NovoLog coverage per scale. (9) Hyperlipidemia LDL goal <70: Hold lovastatin 40 mg p.o. every evening, until taking oral medications again. (10) Thoracic ascending aortic aneurysm: Ascending thoracic aortic aneurysm 4.0 x 4.[address] Will need to be making an appointment to establish with vascular surgery for follow-up. (11) S/P total knee arthroplasty: Patient may continue to do range of motion exercises while in bed. We need to consult PT/OT once medically stable. (12) Iliopsoas bursitis of right hip: Monitor for now. No active treatment with NSAIDs, due to GI bleed. May consider downgrade once upper endoscopy has been completed. Subjective Patient seend and examined at bedside. Patient reports feeling well. Physical Exam 2 Vital Signs (Past 24 Hours): Last Vital Signs Temp 36.8 C 09/09/18 03:37 Pulse 71 09/09/18 03:37 Resp 20 09/09/18 03:37 BP 139/69 09/09/18 03:37 Pulse Ox 95 09/09/18 03:37 Physical Exam: The patient appeared well nourished and normally developed. Vital signs as documented. There is stable now Head exam is unremarkable. normocephalic, atraumatic Neck is without jugular venous distension, thyromegaly, or lymphademopathy Lungs are clear to auscultation and percussion. Cardiac exam reveals Rhythm is regular. First and second heart sounds normal. Abdominal exam reveals hypoactive bowel sounds, no masses, no organomegaly Extremities are nonedematous and both pedal pulses are present he is a incision in his right knee with some serous discharge on dressing there is no fluctuance redness or tenderness Neurologic exam is A&Ox3, no focal deficits, strength is equal bilateral Psychologically seems neither anxious or depressed Skin is warm Dry without bruises or lesions _ (1) Hypotension Hypotension type: unspecified hypotension type Trimester: Qualified Code(s) : I95.9 - Hypotension, unspecified
[2018-09-09 08:13] LABS: INR 1.1 (0.9-1.1); Partial Thromboplastin Ratio 1.1; Partial Thromboplastin Time 27.7 Seconds (21.0-31.0); Prothrombin Time 10.6 Seconds (9.0-12.0)
[2018-09-09 08:39] LABS: Albumin Level 2.2 gm/dl (3.4-5.0); Bilirubin Direct 0.3 mg/dl (0-0.2); Bilirubin,Total 1.4 mg/dl (0.2-1); Magnesium 2.2 mg/dl (1.8-2.4); Phosphorus 2.4 mg/dl (2.5-4.9)
--- NOTE | 2018-09-09 08:39 | Progress Note ---
DATE: 09/09/2018 SUBJECTIVE: A 68-year-old gentleman now 6 days out from a right knee replacement. He had done pretty well postoperatively. He did heterozygous for factor V abnormality. He was on prophylactic doses of Xarelto. He was discharged on and on Sunday, he started having what appears to be rectal bleeding and maybe some upper GI bleeding. He was readmitted for hypotension. He did get several units of blood and some FFP. He has been stable since then. Hemoglobin has been stable. He feels much better. He is having upper GI series/endoscopy done this morning by report. No other complaints. His knee pain is reasonably well controlled. Nausea is improved. OBJECTIVE: VITAL SIGNS: Temperature is 36.8. Vital signs stable. MUSCULOSKELETAL: Physical examination of the right knee reveals the incision to be clean, dry and intact. No significant drainage. Some moderate swelling. Struggling with a straight leg raise. He can dorsiflex and plantarflex his foot appropriately. Calf is soft and supple. LABORATORY DATA: His last hemoglobin was 9.3. Hematocrit 27.3. White cell count normal. Electrolytes are normal. ASSESSMENT: A 68-year-old gentleman 6 days out from a right total knee replacement complicated by recent gastrointestinal bleed. It is a very difficult situation considering he is heterozygous for factor V abnormality with a slightly increased risk of thrombosis plus a recent surgery, but now with a gastrointestinal bleed. He has been off Xarelto. He is scheduled for an upper endoscopy this morning. PLAN: 1. DVT prophylaxis including thigh-high TEDs, SCDs. We will need to hold his anticoagulation for obvious reasons. 2. PT/OT. We will get therapy started. 3. Medical management as per the Medicine and GI Service. 4. Disposition: He appears stable. Once things get sorted out from a GI standpoint, we can hopefully get him home. We will see how things go today with his endoscopy. Any orthopedic questions can be directed to me at [phone].
--- NOTE | 2018-09-09 14:07 | Anesthesiology Consultation ---
Date of Service September 09, 2018 Assessment & Plan (1) Encounter for pre-operative examination: Chart Review Chart Review: Acceptable Risk for Surgery and Patient NOT seen in Pre Admission Testing Consults Requested none ASA ASA3 Proposed Anesthesia Anesthesia Type: MAC Risk / Benefits Reviewed With: PT / POA / Parent / Guardian, Accepts Plan and Informed Consent Obtained NPO Date Last Intake of Fluids: 09/08/18 Time Last Intake of Fluids: 22:00 Date Last Intake of Solids: 09/05/18 Time Last Intake of Solids: 12:00 History Surgery Operation Date: 09/09/18 09:15 Proposed Procedures p Esophagogastroduodenoscopy Dr Gema Ribeiro Height/Weight Height: 5 ft 8 in Weight: 87.6 kg Allergies Allergy/AdvReac Type Severity Reaction Status Date / Time Penicillins Allergy Unknown HIVES Verified 09/07/18 19:44 Medications Home Medications Medication Instructions Recorded Confirmed Last Taken etjhebte-jaxbe-lojri-CF borate 1 tab PO QAM 07/12/18 09/07/18 08/26/18 08:00 [Move Free [employer]] xhzdc-sqcfr-0-fyz-vzq-pzlhhm 1 cap PO QAM 07/12/18 09/07/18 08/26/18 08:00 [krill oil] lovastatin 40 mg PO PM 07/12/18 09/07/18 09/02/18 21:30 metformin 500 mg PO BID 07/12/18 09/07/18 09/01/18 18:00 acetaminophen [Pain Reliever] 1,000 mg PO Q8 30 Days #180 tab 09/04/18 09/07/18 Unknown oxycodone 5 - 10 mg PO Q6H PRN 15 Days #40 09/04/18 09/07/18 Unknown tab rivaroxaban [Xarelto] 10 mg PO DAILY 28 Days #28 tab 09/04/18 09/07/18 Unknown Active Medications Generic Name Dose Route Start Last Admin Trade Name Freq PRN Reason Stop Dose Admin Acetaminophen 1,000 mg 09/08/18 21:50 09/08/18 22:09 Ofirmev IV 10/08/18 21:49 1,000 mg Q8H PRN Administration Pain Cefepime HCl 1,000 mg/ Syringe 11.3 mls @ 5.5 mls/min 09/07/18 21:00 12:59 IV 09/17/18 20:59 5.5 mls/min Q8H KIMBERLY Administration Sodium Chloride 1,000 mls @ 100 mls/hr 09/07/18 21:00 09/09/18 14:31 Nss 1000ml IV 10/07/18 20:59 0 mls/hr .Q10H KIMBERLY Infusion Pantoprazole Sodium 40 mg/ 100 mls @ 20 mls/hr 09/08/18 08:30 09/09/18 14:31 Dextrose IV 10/08/18 08:29 0 mls/hr Q5H KIMBERLY Infusion Insulin Aspart 0 units 09/09/18 06:00 09/09/18 12:21 Novolog Flexpen SC 10/09/18 05:59 1 units Q6 KIMBERLY Administration Past Medical History Medical History Factor V Leiden Iliopsoas bursitis of right hip Hyperlipidemia LDL goal <70 Thoracic ascending aortic aneurysm Diabetes mellitus Acute blood loss anemia Symptomatic anemia Duodenal ulcer with hemorrhage Admitted to intensive care unit Acute GI bleeding (Acute) Hypotension (Acute) Anemia (Acute) Diabetes mellitus, type 2 NIDDM Hyperlipidemia Osteoarthritis Umbilical hernia Past Family History Family History Mother Family history of diabetes mellitus Past Surgical History Surgical History S/P total knee arthroplasty History of colonoscopy History of lithotripsy LEFT ESWL= 09/15/16= "LMA#5 WITH 40CC AIR IN CUFF, EASY, ATRAUMATIC" AT [facility] History of repair of rotator cuff RIGHT Past Anesthesia History No Hx of Anesthesia Complications History of PONV No Motion Sickness Screening History of Motion Sickness: No Social History Smoking Status: Never smoker Do You Dip or Chew Tobacco: No Hx Alcohol Use: No Hx Substance Use: No substance use type: does not use Exercise / Class Metabolic Activity II 4-5 Yardwork/Stairs/Walk up hill Negative for chest pain or shortness of breath. Patient denies active symptoms of GERD. Physical Exam Vital Signs Last Vital Signs Temp 36.7 C 09/09/18 14:42 Pulse 73 09/09/18 14:42 Resp 18 09/09/18 14:42 BP 151/84 H 09/09/18 14:42 Pulse Ox 95 09/09/18 14:42 Constitutional not obese ENMT Mouth: no TMJ abnormality and oral opening not small Thyromental Distance: > or= 3.5 Finger Breadths Mallampati Class: I Neck normal visual inspection and + facial hair (Mustache); neck extension not limited Respiratory normal respiratory effort Auscultation: lungs clear to auscultation bilaterally Cardiovascular Rate/Rhythm: regular rate and regular rhythm Heart Sounds: no murmur Psychiatric A+Ox3, euthymic affect Testing Other Testing Electrocardiogram Date: 07/15/18 Findings: + NSR @ (64) Chest X-Ray Date: 07/15/18 Bibasilar linear densities favor subsegmental atelectasis. The lungs are otherwise clear. The heart remains top normal in size. Laboratory Results 09/09/18 07:14 09/08/18 04:34 Blood Type A Positive 09/07/18 17:50 Antibody Screen NEGATIVE 09/07/18 17:50 PT 10.6 Seconds (9.0-12.0) 09/09/18 07:14 INR 1.1 (0.9-1.1) 09/09/18 07:14 APTT 27.7 Seconds (21.0-31.0) 09/09/18 07:14 09/09/18 09/09/18 09/09/18 12:20 10:27 07:03 POC Glucose 161 H 179 H 163 H 09/09/18 05:51 POC Glucose 172 H
--- NOTE | 2018-09-09 14:42 | History & Physical Report ---
Date of Service September 09, 2018 History of Present Illness Chief Complaint: GI bleed Primary Care Provider: Maurice Wang MD For EGD Allergies Allergy/AdvReac Type Severity Reaction Status Date / Time Penicillins Allergy Unknown HIVES Verified 09/07/18 19:44 Home Medications Home Medications Medication Instructions Recorded Confirmed Type xuiruauo-kcjmx-tilsf-CF borate 1 tab PO QAM 07/12/18 09/07/18 History [Move Free [employer] [facility]] lwcop-hotfv-9-yws-izr-tetuhq 1 cap PO QAM 07/12/18 09/07/18 History [krill oil] lovastatin 40 mg PO PM 07/12/18 09/07/18 History metformin 500 mg PO BID 07/12/18 09/07/18 History acetaminophen [Pain Reliever] 1,000 mg PO Q8 30 Days #180 tab 09/04/18 09/07/18 Rx oxycodone 5 - 10 mg PO Q6H PRN 15 Days #40 09/04/18 09/07/18 Rx tab rivaroxaban [Xarelto] 10 mg PO DAILY 28 Days #28 tab 09/04/18 09/07/18 Rx Past Med/Surg History Medical History Factor V Leiden Iliopsoas bursitis of right hip Hyperlipidemia LDL goal <70 Thoracic ascending aortic aneurysm Diabetes mellitus Acute blood loss anemia Symptomatic anemia Duodenal ulcer with hemorrhage Admitted to intensive care unit Acute GI bleeding (Acute) Hypotension (Acute) Anemia (Acute) Diabetes mellitus, type 2 NIDDM Hyperlipidemia Osteoarthritis Umbilical hernia Surgical History S/P total knee arthroplasty History of colonoscopy History of lithotripsy LEFT ESWL= 09/15/16= "LMA#5 WITH 40CC AIR IN CUFF, EASY, ATRAUMATIC" AT [facility] History of repair of rotator cuff RIGHT Family History Mother Family history of diabetes mellitus Social History marital status: Current Living Situation: Family Other Information That Helps Us Care for You: No Feels Safe at Home: Yes Smoking Status: Never smoker Do You Dip or Chew Tobacco: No Hx Alcohol Use: No Hx Substance Use: No Beliefs That Will Affect Care: None Communication Ability: Effective Physical Exam 2 Vital Signs (Past 24 Hours): Last Vital Signs Temp 36.9 C 09/09/18 12:17 Pulse 73 09/09/18 12:17 Resp 22 09/09/18 12:17 BP 122/68 09/09/18 12:17 Pulse Ox 92 09/09/18 12:17 Constitutional: well developed and well nourished Respiratory: normal respiratory effort Cardiovascular: Rate/Rhythm: regular rate and regular rhythm Heart Sounds: normal S1 and normal S2 Gastrointestinal (Abdomen): Percussion/Palpation: abdomen soft Code Status & VTE Plan VTE Prophylaxis Plan VTE Prophylaxis will be ordered: Yes
[2018-09-09] MEDS ORDERED: SODIUM CHLORIDE 0.9% 1000ML 1,000 ML IV SCH (15:00)
--- NOTE | 2018-09-09 15:33 | GI REPORT ---
Patient Name: Stan Cast Procedure Date: 09/09/2018 3:16 PM Date of : 1950 Admit Type: Inpatient Age: 68 Gender: Male Attending MD: Talha Ribeiro MD Procedure: Upper GI endoscopy Providers: Talha Ribeiro MD Referring MD: Referred Self Indications: Hematemesis, Melena Medicines: Propofol total dose 110 mg IV, Lidocaine 80 mg IV Complications: No immediate complications. Estimated Blood Loss: Estimated blood loss: none. Procedure: Pre-Anesthesia Assessment: - Prior to the procedure, a History and Physical was performed, and patient medications, allergies and sensitivities were reviewed. The patient's tolerance of previous anesthesia was reviewed. - The risks and benefits of the procedure and the sedation options and risks were discussed with the patient. All questions were answered and informed consent was obtained. After obtaining informed consent, the endoscope was passed under direct vision. Throughout the procedure, the patient's blood pressure, pulse, and oxygen saturations were monitored continuously. The Endoscope was introduced through the mouth, and advanced to the second part of duodenum. The upper GI endoscopy was accomplished without difficulty. The patient tolerated the procedure well. Findings: The Z-line was regular and was found 43 cm from the incisors. The examined esophagus was normal. The entire examined stomach was normal. One non-bleeding superficial duodenal ulcer with no stigmata of bleeding was found in the duodenal bulb. The lesion was 20 mm in largest dimension. Impression: - Z-line regular, 43 cm from the incisors. - Normal esophagus. - Normal stomach. - One non-bleeding duodenal ulcer with no stigmata of bleeding. - No specimens collected. Recommendation: - Return patient to [facility] for [facility] care. Talha Ribeiro M.D. Talha Ribeiro MD 09/09/2018 3:32:29 PM This report has been signed electronically. Note Initiated On: 09/09/2018 3:16 PM Number of Addenda: 0 I attest to the content of the Intraoperative Record and orders documented therein, exceptions below {[id number]}
[2018-09-09] MEDS ORDERED: PROPOFOL IV EMULSION 10 MG/ML 20 ML VIAL IV ONE (15:39)
[2018-09-09] MEDS ORDERED: LIDOCAINE HCL 2% 2 ML VIAL/AMP(20MG/ML) INFIL ONE (15:39)
--- NOTE | 2018-09-09 16:30 | Anesthesiology Progress Note ---
Date of Service September 09, 2018 Anesthesia Post Procedure Vital Signs Vital Signs: Temp Pulse Pulse Resp BP BP BP 09/09/18 16:25 68 20 132/77 09/09/18 15:48 69 20 138/78 09/09/18 15:40 70 18 112/68 09/09/18 14:42 36.7 C 73 18 151/84 H 09/09/18 12:17 36.9 C 73 22 122/68 09/09/18 08:00 36.8 C 71 16 133/70 09/09/18 03:37 36.8 C 71 20 139/69 09/08/18 22:58 36.8 C 70 17 122/60 09/08/18 19:07 36.8 C 75 18 142/72 H 09/08/18 16:37 77 21 117/68 Pulse Ox 09/09/18 16:25 95 09/09/18 15:48 68 L 09/09/18 15:40 95 09/09/18 14:42 95 09/09/18 12:17 92 09/09/18 08:00 92 09/09/18 03:37 95 09/08/18 22:58 93 09/08/18 19:07 96 09/08/18 16:37 94 Pain Intensity Right Knee: Pain Intensity: 0 Notes Mental Status: alert / awake / arousable and participated in evaluation Patient Amnestic to Procedure: Yes Nausea / Vomiting: adequately controlled Pain: adequately controlled Airway Patency, RR, SpO2: stable & adequate BP & HR: stable & adequate Hydration State: stable & adequate Anesthetic Complications: no major complications apparent and Pt Satisfied with anesthetic care
[2018-09-09] MEDS ORDERED: NURSING DECISION MEDICATION ONE (17:47)
[2018-09-10] MEDS: PANTOprazole 40 MG in DEXTROSE 5% 100 ML IV SCH ×2 (01:51→05:47)
[2018-09-10] MEDS: ACETAMINOPHEN 1000 MG/100 ML IV IV PRN (01:51)
[2018-09-10] MEDS: SODIUM CHLORIDE 0.9% 1000ML 1,000 ML IV SCH (01:51)
[2018-09-10] MEDS: CEFEPIME 1,000 MG in SYRINGE 0 ML IV SCH (05:47)
[2018-09-10 06:27] LABS: Basophils # (auto) 0.03 K/uL (0-0.2); Basophils % (auto) 0.5 %; Eosinophils # (auto) 0.37 K/uL (0-0.5); Eosinophils % (auto) 6.5 %; Hematocrit (blood only) 26.8 % (42-52); Immature Granulocytes # (auto) 0.07 K/uL (0.00-0.02); Immature Granulocytes % (auto) 1.2 %; Lymphocytes # (auto) 1.11 K/uL (1.2-3.4); Lymphocytes % (auto) 19.4 %; Mean Corpuscular Hgb Conc 33.6 g/dL (32-36); Mean Corpuscular Volume 89.3 fL (80-100); Mean Platelet Volume 9.3 fL (7.4-10.4); Monocytes # (auto) 0.51 K/uL (0.11-0.59); Monocytes % (auto) 8.9 %; Neutrophils # (auto) 3.62 K/uL (1.4-6.5); Neutrophils % (auto) 63.5 %; Nucleated RBC # (auto) 0.02 K/uL (0-0); Nucleated RBC % (auto) 0.4 %; Platelet Count 212 K/uL (130-400); RDW Coefficient of Variation 14.3 % (11.5-14.5); RDW Standard Deviation 45.8 fL (36.4-46.3); White Blood Count 5.71 K/uL (4.8-10.8)
[2018-09-10 06:37] LABS: INR 1.1 (0.9-1.1); Partial Thromboplastin Time 27.2 Seconds (21.0-31.0); Prothrombin Time 10.8 Seconds (9.0-12.0)
[2018-09-10 07:01] LABS: Albumin Level 2.3 gm/dl (3.4-5.0); Bilirubin Direct 0.4 mg/dl (0-0.2); Bilirubin,Total 1.6 mg/dl (0.2-1); Magnesium 2.2 mg/dl (1.8-2.4); Phosphorus 2.8 mg/dl (2.5-4.9); Total Protein 5.2 gm/dl (6.4-8.2)
--- NOTE | 2018-09-10 08:14 | Anesthesiology Progress Note ---
Date of Service September 10, 2018 Anesthesia Post Procedure Vital Signs Vital Signs: Temp Pulse Resp BP BP Pulse Ox 09/10/18 07:07 36.5 C 69 19 153/71 H 95 09/10/18 03:16 36.8 C 67 18 130/70 95 09/09/18 23:03 36.8 C 75 18 137/74 94 09/09/18 19:22 36.5 C 73 20 129/71 96 09/09/18 17:01 36.6 C 76 18 142/68 H 95 09/09/18 16:25 68 20 132/77 95 09/09/18 15:48 69 20 138/78 68 L 09/09/18 15:40 70 18 112/68 95 09/09/18 14:42 36.7 C 73 18 151/84 H 95 09/09/18 12:17 36.9 C 73 22 122/68 92 Pain Intensity Right Knee: Pain Intensity: 0 Notes Mental Status: alert / awake / arousable Patient Amnestic to Procedure: Yes Nausea / Vomiting: adequately controlled Pain: adequately controlled Airway Patency, RR, SpO2: stable & adequate BP & HR: stable & adequate Hydration State: stable & adequate Anesthetic Complications: no major complications apparent
[2018-09-10] MEDS: INSULIN ASPART 100 UNITS/ML 3 ML PEN SC SCH ×2 (08:24→12:10)
--- NOTE | 2018-09-13 10:01 | Discharge Summary ---
Date of Service September 10, 2018 Admission HPI Per Admitting Provider For EGD Principal Diagnosis Duodenal ulcer with hemorrhage Discharge Exam The patient appeared well nourished and normally developed. Vital signs as documented. There is stable now Head exam is unremarkable. normocephalic, atraumatic Neck is without jugular venous distension, thyromegaly, or lymphademopathy Lungs are clear to auscultation and percussion. Cardiac exam reveals Rhythm is regular. First and second heart sounds normal. Abdominal exam reveals hypoactive bowel sounds, no masses, no organomegaly Extremities are nonedematous and both pedal pulses are present he is a incision in his right knee with some serous discharge on dressing there is no fluctuance redness or tenderness Neurologic exam is A&Ox3, no focal deficits, strength is equal bilateral Psychologically seems neither anxious or depressed Skin is warm Dry without bruises or lesions Discharge Data Allergies Allergy/AdvReac Type Severity Reaction Status Date / Time Penicillins Allergy Unknown HIVES Verified 09/07/18 19:44 Consultations 09/07/18 19:15 ED Decision to Admit Stat 09/07/18 20:49 Consult Case Management - Discharge Planning Routine Consult Gastroenterology Stat Consult Shirt Ironer Supervisor Routine Procedures Performed Operation Date: 09/09/18 09:15 Actual Procedures p Esophagogastroduodenoscopy - Talha Ribeiro Ordered Studies 09/07/18 17:56 CT abd pelvis wo con Stat 09/07/18 20:49 US venous doppler LE Urgent Hospital Course (1) Admitted to intensive care unit: Initially Patient was admitted to the ICU due to hypotension associated with symptomatic anemia secondary to acute GI bleeding from duodenal ulcer with hemorrhage. Patient is now in Tele. Upper endoscopy was completed (2) Duodenal ulcer with hemorrhage: CT suggestive of pyloric thickening questionable ulcer and duodenal hemorrhage patient was seen by Dr. Ribeiro. Patient is currently hemodynamically stable after transfusions. 3 units packed cells 1 unit fresh frozen plasma EGD is planned for today (09/09) Continue Protonix drip begun in the ED. Cefepime 1 g IV every 8 hours. Team had discussed with Dr. Sahu reversal of Xarelto. cleaner and presser Dr. Maurer.utilization management um nurse Dr. Ribeiro. Patient has history of factor V Leiden. Negative venous Dopplers of bilateral lower extremities, begin SCDs. CT scan findings CT noted Moderate circumferential wall thickening about the pylorus, first and second portions of the duodenum with mild irregularity of the duodenal mucosa is suggestive of underlying peptic ulcer disease or ulcerative mucosal lesion. Hyperattenuating material within the duodenal lumen suggests intraluminal hemorrhage. These findings could be correlated with endoscopy. Moderate likely reactive paraduodenal inflammation. No pneumatosis or pneumoperitoneum.Colonic diverticulosis without acute diverticulitis. Fusiform aneurysmal dilation of the ascending thoracic aorta, 4.0 x 4.0 cm. Hemoglobin was stable for past 3 days. No more signs of bleeding. Will discharge on PPI. Will hold off ASA for now. Patient will f/u with GI. (3) Acute blood loss anemia: concern for upper GI bleed from peptic or duodenal ulcer status post 3 units packed cells 1 unit FFP Hemoglobin has been stable at 9.0 today (09/09) (4) Hypotension: secondary to acute blood loss anemia will support with volume ressusitation BP is currently controlled (5) Acute GI bleeding: on protonix gtt and will have endoscopic consideration (6) Symptomatic anemia: See above (7) Factor V Leiden: Xarelto has been discontinued due to GI bleed. SCDs for DVT prophylaxis after venous Dopplers have been found to be negative. Continue to follow closely. (8) Diabetes mellitus: Hold metformin 500 [address] twice daily. Place on Accu-Cheks before meals and at bedtime with NovoLog coverage per scale. (9) Hyperlipidemia LDL goal <70: Hold lovastatin 40 mg p.o. every evening, until taking oral medications again. (10) Thoracic ascending aortic aneurysm: Ascending thoracic aortic aneurysm 4.0 x 4.[address] Will need to be making an appointment to establish with vascular surgery for follow-up. (11) S/P total knee arthroplasty: Patient may continue to do range of motion exercises while in bed. We need to consult PT/OT once medically stable. (12) Iliopsoas bursitis of right hip: Monitor for now. No active treatment with NSAIDs, due to GI bleed. Total Time Total Time Spent Total Time Spent (In Minutes): 32 Total Time Includes: Examination of the Patient, Discharge Planning and Medication Reconciliation Discharge Plan Discharge Items Patient Disposition: Home - Home Health Services Reason For Visit: GI BLEED Discharge Diagnosis: Upper GI bleed/ possibly from duodenal ulcer Discharge Goals: Decrease discomfort Activity: Resume your previous activity Non-emergency contact: Primary Care Provider and Radio Operator Ground Call non-emergency contact if: your symptoms worsen Follow-up/Referrals: Maurice Wang MD [Primary Care Provider] - 09/18/18 11:30 am (Please, follow up with Dr. Wang on SundaySeptember 18 at 11:30 am. *If you need to change this appointment, call his office at [phone].) Talha Ribeiro [Physician] - 11/06/18 9:00 am (Please, follow up at [facility] Gastroenter[facility] Office with Dr. Ribeiro on SundayNovember 06 at 9:00 am. *This office is located at [address] [place] [address] in [place] - next to [facility] ([place]). If you need to change this appointment, call the office at [phone].) Diet: Carb Consistent or DM2 Addtl Provider Instructions: Followup with PCP in 1-2 weeks F/U with Dr. Ribeiro in 4 weeks. Check blood work in 1 week. Do not take Aspirin. Prescriptions: New pantoprazole 40 mg tablet,delayed release (DR/EC) 40 mg PO BID 30 Days Qty: 60 RF: 0 Continue metformin 500 mg Tablet 500 mg PO BID RF: 0 lovastatin 40 mg Tablet 40 mg PO PM RF: 0 [id number] [krill oil] 066-55-64-50 mg Capsule 1 cap PO QAM RF: 0 [id number]-jjeuc-[id number]-CF borate [[facility]] 750 mg-100 mg- 1.65 mg -108 mg Tablet 1 tab PO QAM RF: 0 rivaroxaban [Xarelto] 10 mg Tablet 10 mg PO DAILY 28 Days Qty: 28 RF: 0 acetaminophen [Pain Reliever] 500 mg Tablet 1,000 mg PO Q8 30 Days Qty: 180 RF: 0 oxycodone 5 mg Tablet 5 - 10 mg PO Q6H PRN (Reason: pain) 15 Days Qty: 40 RF: 0 Stand-Alone Forms: [facility] Discharge Orders: Discharge Order (Routine); Ordered 09/10/18 Ordered By: Joseph Muir Admission Data Admit Date/Time: 01/26/19 20:15 Attending Provider: Joseph Muir Admit Provider: Joce Collins Primary Care Provider: Maurice Wang Other Providers: Talha Ribeiro ; Sydnie Maurer Service: Telemetry Other Interventions: Discharge Summary Assessment (RN) Last Done: 09/10/18 12:15 DC Date/Time DO NOT enter until pt leaves facility: 09/10/18 12:30
== END 2018-09-10 12:30 | disposition home health service (06) | DRG 378 ==
LOC: ED 17:37 → 1E 20:15 → SUATTDRO 20:15 → 1E 20:41 → 2E 09-08 18:57
DX: E11.9 Type 2 diabetes mellitus without complications; K26.0 Acute duodenal ulcer with hemorrhage; I71.2 Thoracic aortic aneurysm, without rupture; I95.9 Hypotension, unspecified; D62 Acute posthemorrhagic anemia; Z79.84 Long term (current) use of oral hypoglycemic drugs; Z79.01 Long term (current) use of anticoagulants; E78.5 Hyperlipidemia, unspecified; Z96.651 Presence of right artificial knee joint; Z79.899 Other long term (current) drug therapy; D68.2 Hereditary deficiency of other clotting factors; Z88.0 Allergy status to penicillin; M70.71 Other bursitis of hip, right hip